=== PATIENT | female | born 2000 | race Hispanic/Latino ===

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

== ENCOUNTER 2024-11-05 17:32 | Emergency (ER) | payer OTHER ==
--- OUTSIDE RECORDS SUMMARY | 2024-11-05 17:41 | XMS REPORT | Continuity of Care Document ---
Author Name Unknown Address [address] [facility] [place] [address] [facility] [place] Address [address] [facility] [place] [address] Care Team Prov[address] Care Ct Manager Name Role Phone PCP, PATIENT DOES NOT HAVE A Primary Care Physic zelalem Unavailable CHONG HILLS Attending Clinician Unavailable KASEY FELDER Attending Clinician UnavailKasey Villasenor CNM Attending Clinician [phone] Doctor Unassigned, [place] Attending Clinician U ABIOLA Gonsales Attending Clinician Unavail able Abiola Cobos Attending Clinician + MAYELA CHAU Attending Clinician Unavailable MAYELA CHAU Attending Clinician Unavailable Mayela Chau MD Attending Clinician [phone] Ultrasound, [facility] Attending Clinician Unavailadriano rangel Doctor Unassigned, [place] Attending Clinician U SOHAM Rivas Attending Clinician Soham Gomes MD Attending Clinician [phone] Angela Boyd MD Attending Clinici an Yefri Paml Attending Clinician [phone] Kasey Felder CNM Attending Clinician [phone] NISREEN MONZON Attending Clinician Unavailable NISREEN MONZON Attending Clinician Unavailable 4, [facility] Attending Clinician Unavailadriano Monzon MD, Nisreen Attending Clinician [phone] Jaclyn [facility], Abiola Ventura Attending Clinician + Good Mendoza MD Attending Clinician + Marcus Stokes MD Attending Clinician [phone] GOOD MENDOZA Attending Clinician Unav ailable ELIZABETH YOUNG Attending Clinician Unavailab Hernandez MOLD ENGRAVER, Elizabeth Cm Attending Clinician + [phone] MARIA G LEIGH Attending Clinician Unavailtodd Leigh MOLD ENGRAVER, Maria G Beal Attending Clinician [phone] Lab, [facility] Attending Clinician Unavailable Ramírez CONKLIN, Mayela Squires Attending Clinician [phone], [facility] Attending Clinician Unavailadriano Mckeon MOLD ENGRAVER, Cheli Attending Clinician [phone] SOHAM BRIGGS Admitting Clinician Unavailadriano Briggs MD, Soham Solis Admitting Clinician + [phone] Good Mendoza MD Admitting Clinician + GOOD MENDOZA Admitting Clinician Unav ailable Payers Payer Name Policy Type Policy Number Effective Date Expirati on Date Source [place] [employer] [id number] 2024 00:00:00 [facility] [id number] 2023 00:00:00 2024 00:00:00 Problems Condition Name Condition Details Condition Category Status Onset Date Resolution Date Last Treatment Date Treating Clinician Comments Source Refuses tetanus, diphtheria , and acellular pertussis (Tdap) vaccinatio n Refuses tetanus, diphtheria , and acellular pertussis (Tdap) vaccinatio n Disease Active 3-06 00:00: 00 [facility] Supervisio n of high-risk Supervisio n of high-risk Disease Active 2023-08 0-15 00:00: 00 [facility] Multiparit y Multiparit y Disease Active 2023-08 0-15 00:00: 00 [facility] Short interval between pregnancie s affecting , antepartum Short interval between pregnancie s affecting , antepartum Disease Active 2023-08 0-15 00:00: 00 [facility] Declines flu vaccine Declines flu vaccine Disease Active 2022-08 1-20 00:00: 00 [facility] Maternal varicella, non-immune Maternal varicella, non-immune Disease Active -29 00:00: 00 [facility] Overweight (BMI 25.0-29.9) Overweight (BMI 25.0-29.9) Disease Active 5-29 00:00: 00 [facility] (spontaneo us vaginal delivery) (spontaneo us vaginal delivery) Disease Active 5-21 00:00: 00 [facility] Anemia of mother in , antepartum Anemia of mother in , antepartum Disease Active 3-16 00:00: 00 [facility] Rubella non-immune status, antepartum Rubella non-immune status, antepartum Disease Active 2020-08 00:00: 00 [facility] Pain of round ligament affecting , antepartum Pain of round ligament affecting , antepartum Disease Active 2020-08 00:00: 00 [facility] BMI 29.0-29.9, adult BMI 29.0-29.9, adult Disease Active 2020-08 00:00: 00 [facility] Nausea and vomiting during Nausea and vomiting during Disease Active 2020-08 00:00: 00 [facility] Susceptibl e to varicella (non-immun e), currently Susceptibl e to varicella (non-immun e), currently Disease Resolve d 2023-08 00:00: 00 2024-10-16 00:00:00 2024-10-16 13:58:36 [facility] Over weight Over weight Disease Resolve d 2023-08 0-15 00:00: 00 2024-10-16 00:00:00 2024-10-16 13:58:42 [facility] Anemia, Anemia, Disease Resolve d 2022-08 2-09 00:00: 00 2024-05-28 00:00:00 2024-05-28 14:11:07 [facility] 39 weeks gestation of 39 weeks gestation of Disease Resolve d 2022-08 2-07 00:00: 00 2024-05-28 00:00:00 2024-05-28 14:11:06 [facility] Insufficie nt care in third trimester Insufficie nt care in third trimester Disease Resolve d 2022-08 1-20 00:00: 00 2024-05-28 00:00:00 2024-05-28 14:11:11 [facility] Obesity affecting in third trimester Obesity affecting in third trimester Disease Resolve d 2022-0 5-29 00:00: 00 2024-05-28 00:00:00 2024-05-28 14:11:15 [facility] Obstetrica l laceration Obstetrica l laceration Disease Resolve d 2021-0 5-22 00:00: 00 2024-05-28 00:00:00 2024-05-28 15:05:21 [facility] Single live Single live Disease Resolve d 2021-0 5-21 00:00: 00 2024-05-28 00:00:00 2024-05-28 14:11:17 [facility] (normal spontaneou s vaginal delivery) (normal spontaneou s vaginal delivery) Disease Resolve d 2021-0 5-21 00:00: 00 2024-05-28 00:00:00 2024-05-28 14:11:13 [facility] Anemia of mother in , antepartum Anemia of mother in , antepartum Disease Active 2021-0 3-16 00:00: 00 2024-05-28 00:00:00 2024-05-28 14:11:07 [facility] related nausea, antepartum related nausea, antepartum Disease Resolve d 2020- 1-09 00:00: 00 2023-07-03 00:00:00 2023-07-03 14:58:46 [facility] Chorioamni onitis Chorioamni onitis Disease Resolve d 2021-0 5-22 00:00: 00 2023-01-06 00:00:00 2023-01-06 10:20:59 [facility] 37 weeks gestation of 37 weeks gestation of Disease Resolve d 2021-0 5-20 00:00: 00 2023-01-06 00:00:00 2023-01-06 10:20:52 [facility] Uterine contractio ns Uterine contractio ns Disease Resolve d 0 5-19 00:00: 00 2023-01-06 00:00:00 2023-01-06 10:20:51 [facility] Obesity in Obesity in Disease Resolve d 2021-0 4-29 00:00: 00 2023-01-06 00:00:00 2023-01-06 10:21:05 [facility] Obesity (BMI 30-39.9) Obesity (BMI 30-39.9) Disease Resolve d 2021-0 4-29 00:00: 00 2023-01-06 00:00:00 2023-01-06 10:21:04 [facility] High risk teen in third trimester High risk teen in third trimester Disease Resolve d 2021-0 3-16 00:00: 00 2023-01-06 00:00:00 2023-01-06 10:21:00 [facility] Primigravi da in third trimester Primigravi da in third trimester Disease Resolve d 2021-0 2-18 00:00: 00 2023-01-06 00:00:00 2023-01-06 10:21:06 [facility] Chlamydia infection affecting in first trimester Chlamydia infection affecting in first trimester Disease Resolve d 2020-08 1-11 00:00: 00 2023-01-06 00:00:00 2023-01-06 10:20:58 Overview: Formattin g of this note might be different from the original. ANAND neg [facility] Susceptibl e to varicella (non-immun e), currently Susceptibl e to varicella (non-immun e), currently Disease Resolve d 2020-08- 00:00: 00 2023-01-06 00:00:00 2023-01-06 10:21:13 [facility] BMI 29.0-29.9, adult BMI 29.0-29.9, adult Disease Resolve d 2020-08 00:00: 00 2023-01-06 00:00:00 2023-01-06 10:20:57 [facility] Nausea and vomiting during Nausea and vomiting during Disease Resolve d 2020-08 00:00: 00 2023-01-06 00:00:00 2023-01-06 10:21:17 [facility] Supervisio n of high-risk Supervisio n of high-risk Disease Resolve d 2020-08 00:00: 00 2023-01-06 00:00:00 2023-01-06 10:21:11 [facility] 36 weeks gestation of 36 weeks gestation of Disease Resolve d 5-19 00:00: 00 2022-01-02 00:00:00 2022-01-02 07:12:50 [facility] Allergies, Adverse Reactions, Alerts Allergy Name Allergy Type Status Severity Reaction(s) Onset Date Inactive Date Treating Clinician Comments Source NO KNOWN ALLERGIE S Drug Class Active [facility] Family History Family Member Diagnosis Comments Start Date Stop Date Sourc e Maternal grandfather Other - see comments [facility] Maternal grandmother Diabetes [facility] Maternal grandmother Heart [facility] Maternal grandmother Hypertension [facility] Maternal grandmother Lipids [facility] Paternal grandmother Hypertension [facility] Social History Social Habit Start Date Stop Date Quantity Comments Source ASSERTION 2024-03-21 00:00:00 [facility] intake 2024-10-16 00:00:00 2024-10-16 00:00:00 Current non-drinker of alcohol (finding) [facility] History of Social function 2024-05-28 00:00:00 2024-05-28 00:00:00 [facility] Alcohol intake 2023-07-20 00:00:00 2023-07-20 00:00:00 Current non-drinker of alcohol (finding) [facility] Exposure to SARS-CoV-2 (event) 2022-12-27 00:00:00 2023-01-06 09:39:00 Not sure [facility] Tobacco use and exposure 2023-01-06 00:00:00 2023-01-06 00:00:00 Smokeless tobacco non-user [facility] Sex assigned at 2000 00:00:00 2000 00:00:00 [facility] Smoking Status Start Date Stop Date Source Never smoked tobacco [facility] Medications Ordered Medication Name Filled Medication Name Start Date Stop Date Current Medication? Ordering Clinician Indication Dosage Frequency Signature (SIG) Comments Components Source Iron Fum & P-FA-Vit B & C No.9 (INTEGRA PLUS) 125 mg iron- 1 mg Cap 3-06 00:00: 00 Yes [id number] 1{capsu le} Take 1 capsule by mouth in the morning. [facility] Nitrofurant oin&Nit. Macrocryst (MACROBID) 100 mg capsule 2-04 00:00: 00 09-28 05:59 :00 No [id number] 100mg Take 1 capsule by mouth in the morning and 1 capsule in the evening. Do all this for 10 days. [facility] Nitrofurant oin&Nit. Macrocryst (MACROBID) 100 mg capsule 1-09 00:00: 00 08-22 00:00 :00 No [id number] 100mg Take 1 capsule by mouth in the morning and 1 capsule in the evening. Do all this for 10 days. [facility] metroNIDAZO LE 500 mg tablet -08 00:00: 00 10-16 00:00 :00 No [id number] 500mg Take 1 tablet by mouth in the morning and 1 tablet in the evening. [facility] fluconazole (DIFLUCAN) 150 mg tablet 08-21 00:00: 00 08-22 05:59 :00 Yes [id number] 150mg Take 1 tablet by mouth once now for 1 dose. [facility] Nitrofurant oin&Nit. Macrocryst (MACROBID) 100 mg capsule 08-19 00:00: 00 08-30 05:59 :00 Yes [id number] 100mg Take 1 capsule by mouth in the morning and 1 capsule in the evening. Do all this for 10 days. [facility] metroNIDAZO LE 500 mg tablet 2023-08 00:00: 00 10-16 00:00 :00 No [id number] 500mg Take 1 tablet by mouth in the morning and 1 tablet in the evening. [facility] fluconazole (DIFLUCAN) 150 mg tablet 2023-08 00:00: 00 06-27 05:59 :00 No [id number] 150mg Take 1 tablet by mouth once now for 1 dose. [facility] promethazin e HCl (PROMETHAZI NE ORAL) 2023-08 13:51: 22 10-16 00:00 :00 No [id number] Take by mouth. [facility] proMETHazin e 25 mg tablet 2023-08 00:00: 00 Yes [id number] 25mg Take 1 tablet by mouth every 6 (six) hours as needed for Nausea and Vomiting (N/V). [facility] vitamin w/FA tablet 2022-08 00:00: 00 05-28 00:00 :00 No [id number] 1{tbl} Take 1 tablet by mouth in the morning. [facility] docusate 100 mg capsule 2022-08 00:00: 00 05-28 00:00 :00 No [id number] 200mg Take 2 capsules by mouth once daily as needed for Constipati on. [facility] ferrous sulfate 325 mg (65 mg iron) tablet 2022-08 00:00: 00 05-28 00:00 :00 No [id number] 325mg Take 1 tablet by mouth in the morning and 1 tablet in the evening. [facility] ibuprofen 600 mg tablet 2022-08 00:00: 00 05-28 00:00 :00 No [id number] 600mg Take 1 tablet by mouth every 6 (six) hours as needed (Pain). Take with food or milk. [facility] rho(D) immune globulin (RHOGAM) syringe 300 mcg 2022-08 14:31: 21 Yes 300ug 300 mcg, Intramuscu lar, ONCE, For 1 dose, Conditiona l, Routine [facility] human papillomav vac,9-ester(P F) (GARDASIL-9 ) syringe 0.5 mL 2022-08 14:31: 18 Yes .5mL 0.5 mL, Intramuscu lar, ONCE-PRIOR TO DISCHARGE, 1 dose, Starting on Mon07/21/23 at 0831, Until Discontinu ed, Routine, Give vaccine prior to discharge [facility] HYDROcodone -acetaminop hen (NORCO 5) 5-325 mg tablet 1 tablet 2022-08 14:31: 18 Yes 1{tbl} 1 tablet, Oral, Q6HPRN, Starting on Mon07/21/23 at 0831, Until Discontinu ed, Routine, Pain (scale 7-10) [facility] ibuprofen (IBU) tablet 600 mg 2022-08 14:31: 17 Yes 600mg 600 mg, Oral, Q6HPRN, Starting on Mon07/21/23 at 0831, Until Discontinu ed, Routine, Pain (scale 4-6) [facility] acetaminoph en (TYLENOL) tablet 650 mg 2022-08 14:31: 17 Yes 650mg 650 mg, Oral, Q6HPRN, Starting on Mon07/21/23 at 0831, Until Discontinu ed, Routine, Pain (scale 1-3) [facility] diphenhydrA MINE (BENADRYL) tablet 25 mg 2022-08 14:31: 17 Yes 25mg 25 mg, Oral, Q6HPRN, Starting on Mon07/21/23 at 0831, Until Discontinu ed, Routine, Sleep, Itching [facility] ondansetron (ZOFRAN (PF)) injection 4 mg 2022-08 14:31: 17 Yes 4mg 4 mg, Slow IV Push, Q8HPRN, Starting on Mon07/21/23 at 0831, Until Discontinu ed, Routine, Nausea and Vomiting (N/V) [facility] simethicone (GAS RELIEF (SIMETHICON E)) chewable tablet 160 mg 2022-08 14:31: 17 Yes 160mg 160 mg, Oral, PC+HSPRN, Starting on Mon07/21/23 at 0831, Until Discontinu ed, Routine, Gas [facility] docusate (COLACE) capsule 200 mg 2022-08 14:31: 17 Yes 200mg 200 mg, Oral, QDAILYPRN, Starting on Mon07/21/23 at 0831, Until Discontinu ed, Routine, Constipati on [facility] magnesium hydroxide (MILK OF MAGNESIA) 400 mg/5 mL suspension 30 mL 2022-08 14:31: 17 Yes 30mL 30 mL, Oral, QDAILYPRN, Starting on Mon07/21/23 at 0831, Until Discontinu ed, Routine, Constipati on [facility] benzocaine- menthol (DERMOPLAST ) 20-0.5 % topical spray 2022-08 14:31: 17 Yes Topical, PRN, Starting on Mon07/21/23 at 0831, Until Discontinu ed, Routine, Perineum discomfort [facility] oxytocin (PITOCIN) 30 units in NS 500 mL IV infusion 2022-08 12:37: 33 07-21 14:31 :20 No 300mL/h 300 mL/hr, IV Infusion, SEE-INSTRU CTIONS, Starting on Mon07/21/[address] at 300 mL/hr for 1 hr then 150 mL/hr for 1 hr. For post delivery uterotonic .
[facility] ropivacaine 0.2 % (NAROPIN (PF)) epidural infusion 2022-08 08:46: 00 07-21 13:22 :06 No Epidural, CONTINUOUS PRN, Starting on Mon07/21/23 at 0246, Until Mon07/21/23 at 0722, Routine, Intra-op [facility] lidocaine-e pinephrine (XYLOCAINE W/EPINEPHRI NE) 1.5 %-1:200,000 injection 2022-08 08:40: 00 07-21 13:22 :06 No Intraderma l, ONCE INTRA PROCEDURE, Starting on Mon07/21/23 at 0240, Until Mon07/21/23 at 0722, Routine, Intra-op [facility] morpHINE (4 mg/mL) injection 4 mg 2022-08 08:00: 00 07-21 07:16 :00 No 4mg 4 mg, Slow IV Push, ONCE, 1 dose, On Mon07/21/23 at 0200, Routine [facility] proMETHazin e (PHENERGAN) 25 mg in NS 50 mL IV piggyback (CNR) 2022-08 03:30: 00 07-21 04:19 :00 No 25mg 25 mg, IV Piggyback, at 200 mL/hr Administer over 15 Minutes, ONCE NOW, 1 dose, On Raiza 07/20/23 at 2130, Routine [facility] morpHINE (4 mg/mL) injection 4 mg 2022-08 03:15: 00 07-21 02:35 :00 No 4mg 4 mg, Slow IV Push, ONCE, 1 dose, On Mon07/20/23 at 2115, Routine [facility] sodium citrate-cit gera acid (BICITRA) 500-334 mg/5 mL solution 30 mL 2022-08 02:11: 13 07-21 08:15 :00 No 30mL 30 mL, Oral, PRE-PROCED URE ONCE, 1 dose, Starting on Raiza 07/20/23 at 2010, Until Discontinu ed, Routine, Surgery/Pr ocedure [facility] lactated ringers IV infusion 500 mL 2022-08 02:11: 13 07-21 14:31 :20 No 500mL at 999 mL/hr, 500 mL, IV Infusion, PRN - SEE INSTRUCTIO NS, Starting on Mon07/20/23 at 2010, Until Mon07/21/23 at 0831, Routine [facility] [id number]-[id number] IV infusion 1,000 mL 2022-08 02:11: 13 07-21 14:31 :20 No 1000mL at 1-125 mL/hr, IV Infusion, TITRATE, Starting on Mon07/20/23 at 2010, Until Mon07/21/23 at 0831, Routine [facility] Iron Fum & P-FA-Vit B & C No.9 (INTEGRA PLUS) 125 mg iron- 1 mg Cap 2022-08 00:00: 00 07-22 00:00 :00 No [id number] 1{capsu le} Take 1 capsule by mouth in the morning. [facility] varicella virus vaccine live (VARIVAX (PF)) injection 0.5 mL 01-02 13:43: 13 Yes .5mL 0.5 mL, Subcutaneo us, ONCE-PRIOR TO DISCHARGE, 1 dose, Starting on 01/02/22 at 0843, Until Discontinu ed, Routine, Give vaccine prior to discharge [facility] ibuprofen 600 mg tablet 01-02 00:00: 00 01-09 00:00 :00 No [id number] 600mg Take 1 tablet by mouth every 6 (six) hours as needed (Pain). Take with food or milk. [facility] rho(D) immune globulin (RHOGAM) syringe 300 mcg 01-01 12:29: 42 Yes 300ug 300 mcg, Intramuscu lar, ONCE, For 1 dose, Conditiona l, Routine [facility] ibuprofen (IBU) tablet 600 mg 01-01 12:29: 41 Yes 600mg 600 mg, Oral, Q6HPRN, Starting on 01/01/22 at 0729, Until Discontinu ed, Routine, Pain (scale 4-6) [facility] acetaminoph en (TYLENOL) tablet 650 mg 01-01 12:29: 41 Yes 650mg 650 mg, Oral, Q6HPRN, Starting on 01/01/22 at 0729, Until Discontinu ed, Routine, Pain (scale 1-3) [facility] diphenhydrA MINE (BENADRYL) tablet 25 mg 01-01 12:29: 41 Yes 25mg 25 mg, Oral, Q6HPRN, Starting on 01/01/22 at 0729, Until Discontinu ed, Routine, Sleep, Itching [facility] ondansetron (ZOFRAN (PF)) injection 4 mg 01-01 12:29: 41 Yes 4mg 4 mg, Slow IV Push, Q8HPRN, Starting on 01/01/22 at 0729, Until Discontinu ed, Routine, Nausea and Vomiting (N/V) [facility] simethicone (GAS RELIEF (SIMETHICON E)) chewable tablet 160 mg 01-01 12:29: 41 Yes 160mg 160 mg, Oral, PC+HSPRN, Starting on 01/01/22 at 0729, Until Discontinu ed, Routine, Gas [facility] docusate (COLACE) capsule 200 mg 01-01 12:29: 41 Yes 200mg 200 mg, Oral, QDAILYPRN, Starting on 01/01/22 at 0729, Until Discontinu ed, Routine, Constipati on [facility] magnesium hydroxide (MILK OF MAGNESIA) 400 mg/5 mL suspension 30 mL 01-01 12:29: 41 Yes 30mL 30 mL, Oral, QDAILYPRN, Starting on 01/01/22 at 0729, Until Discontinu ed, Routine, Constipati on [facility] benzocaine- menthol (DERMOPLAST ) 20-0.5 % topical spray 01-01 12:29: 41 Yes Topical, PRN, Starting on 01/01/22 at 0729, Until Discontinu ed, Routine, Perineum discomfort [facility] acetaminoph en (TYLENOL) tablet 650 mg 01-01 06:57: 00 01-01 07:11 :00 No 650mg 650 mg, Oral, ONCE, 1 dose, On 01/01/22 at 0200, Routine [facility] oxytocin (PITOCIN) 30 units in NS 500 mL IV infusion 01-01 06:52: 29 01-01 12:29 :43 No 300mL/h 300 mL/hr, IV Infusion, SEE-INSTRU CTIONS, Starting on 01/01/[address] at 300 mL/hr for 1 hr then 150 mL/hr for 1 hr. & nbsp; For post delivery uterotonic
[facility] acetaminoph en (TYLENOL) tablet 650 mg 01-01 01:45: 00 01-01 00:44 :00 No 650mg 650 mg, Oral, ONCE, 1 dose, On Mon12/31/21 at 2045, Routine [facility] bupivacaine (preserv free) (SENSORCAIN E MPF) 0.25 % (2.5 mg/mL) injection 01-01 01:02: 00 01-01 08:33 :09 No Caudal Block, ONCE INTRA PROCEDURE, Starting on Mon12/31/21 at 2002, Until Mon01/01/22 at 0333, Routine, Intra-op [facility] lactated ringers IV infusion 500 mL 12-31 19:45: 00 12-31 18:59 :00 No 500mL at 999 mL/hr, 500 mL, IV Infusion, ONCE, 1 dose, On Mon12/31/21 at 1445, Routine [facility] oxytocin (PITOCIN) 30 units in NS 500 mL IV infusion 12-31 19:43: 34 01-01 12:29 :43 No 1mU/min at 1-40 mL/hr, IV Infusion, TITRATE, Starting on Mon12/31/21 at 1443, Until Mon01/01/22 at 0729, SUSHILA [facility] ropivacaine 0.2 % (NAROPIN (PF)) epidural infusion 12-31 19:18: 00 01-01 08:33 :09 No Epidural, CONTINUOUS PRN, Starting on Mon12/31/21 at 1418, Until 01/01/22 at 0333, Routine, Intra-op [facility] lidocaine-e pinephrine (XYLOCAINE W/EPINEPHRI NE) 2 %-1:200,000 injection 12-31 19:13: 00 01-01 08:33 :09 No Intravenou s, ONCE INTRA PROCEDURE, Starting on Mon12/31/21 at 1413, Until 01/01/22 at 0333, Routine, Intra-op [facility] lidocaine 1% (XYLOCAINE) 100 mg/10 mL (1 %) injection 12-31 19:01: 00 01-01 08:33 :09 No Slow IV Push, ONCE INTRA PROCEDURE, Starting on Mon12/31/21 at 1401, Until 01/01/22 at 0333, Routine, Intra-op [facility] sodium citrate-cit gera acid (BICITRA) 500-334 mg/5 mL solution 30 mL 12-31 18:41: 44 12-31 18:59 :00 No 30mL 30 mL, Oral, PRE-PROCED URE ONCE, 1 dose, Starting on Mon12/31/21 at 1341, Until Discontinu ed, Routine, Surgery/Pr ocedure [facility] hydrocortis one 1 % cream 12-31 16:57: 04 01-01 12:29 :43 No Topical (Apply To Affected Areas), BIDPRN, Starting on Mon12/31/21 at 1157, Until 01/01/22 at 0729, Routine, Dermatitis /Rash [facility] proMETHazin e (PHENERGAN) 25 mg in NS 50 mL IV piggyback (CNR) 12-31 15:30: 00 12-31 15:11 :00 No 25mg 25 mg, IV Piggyback, at 200 mL/hr Administer over 15 Minutes, ONCE, 1 dose, On Mon12/31/21 at 1030, Routine [facility] butorphanol (STADOL) injection 1 mg 12-31 15:30: 00 12-31 14:45 :00 No 1mg 1 mg, IV Push, ONCE, 1 dose, On Mon12/31/21 at 1030, Routine [facility] tobramycin (NEBCIN) 320 mg in NaCl 0.9% (NS) piggyback 12-31 14:00: 00 01-01 12:29 :43 No 5mg/kg 320 mg (rounded from 310.5 mg = 5 mg/kg ?62.1 kg Adjusted weight), IV Piggyback, Q24H ABX, First dose on Mon12/31/21 at 0900, Until Discontinu ed, Administer over 30 Minutes, 50 mL
Reas on for Anti-Infec tive: Documented Infection< br>Documen seda Infection Site: Pelvic
Duration of Therapy: Other (see Comments) [facility] ampicillin (POLYCILLIN -N) 2,000 mg in NaCl 0.9% (NS) 100 mL MINI-BAG 12-31 14:00: 00 01-01 12:29 :43 No 2g 2,000 mg (2 g), IV Piggyback, Q6H ABX, First dose on Mon12/31/21 at 0900, Until Discontinu ed, Administer over 30 Minutes, 100 mL
Reas on for Anti-Infec tive: Empiric Therapy for Suspected Infection< br>Empiric Therapy Site: Pelvic
Duration of therapy: 72 hours [facility] acetaminoph en (TYLENOL) tablet 650 mg 12-31 14:00: 00 12-31 13:26 :00 No 650mg 650 mg, Oral, ONCE, 1 dose, On Mon12/31/21 at 0900, Routine [facility] proMETHazin e (PHENERGAN) 25 mg in NS 50 mL IV piggyback (CNR) 12-31 08:15: 00 12-31 07:46 :00 No 25mg 25 mg, IV Piggyback, at 200 mL/hr Administer over 15 Minutes, ONCE, 1 dose, On Mon12/31/21 at 0315, Routine [facility] [facility] but[facility]STADOL[facility] 1 mg 12-31 08:15: 00 12-31 07:27 :00 No 1mg 1 mg, IV Push, ONCE, 1 dose, On Mon12/31/21 at 0315, Routine [facility] [id number] IV infusion 1,000 mL 12-31 05:15: 00 01-01 12:29 :43 No 1000mL at 125 mL/hr, IV Infusion, CONTINUOUS , Starting on Mon12/31/21 at 0015, Until 01/01/22 at 0729, Routine [facility] lactated ringers IV infusion 500 mL 12-31 05:01: 18 01-01 12:29 :43 No 500mL at 999 mL/hr, 500 mL, IV Infusion, PRN - SEE INSTRUCTIO NS, Starting on Mon12/31/21 at 0001, Until 01/01/22 at 0729, Routine [facility] ferrous sulfate 325 mg (65 mg iron) tablet 10-18 00:00: 00 01-09 00:00 :00 No [id number] 325mg Take 1 tablet by mouth 2 (two) times daily. [facility] ascorbic acid, vitamin C, 500 mg tablet 10-18 00:00: 00 01-09 00:00 :00 No [id number] 500mg Take 1 tablet by mouth 3 (three) times daily. [facility] SELECT-OB + DHA 29 mg iron-1 mg -250 mg combo pack 2020-08 00:00: 00 01-09 00:00 :00 No [facility] Immunizations Ordered Immunization Name Filled Immunization Name Date Status Comments Source HEPATITIS A 2015-04-07 00:00:00 Completed [facility] HPV 2015-04-07 00:00:00 Completed [facility] HEPATITIS A 2015-04-07 00:00:00 Completed [facility] HPV 2015-04-07 00:00:00 Completed [facility] HEPATITIS A 2015-04-07 00:00:00 Completed [facility] HPV 2015-04-07 00:00:00 Completed [facility] HEPATITIS A 2015-04-07 00:00:00 Completed [facility] HPV 2015-04-07 00:00:00 Completed [facility] HEPATITIS A 2015-04-07 00:00:00 Completed [facility] HPV 2015-04-07 00:00:00 Completed [facility] HEPATITIS A 2015-04-07 00:00:00 Completed HPV 2015-04-07 00:00:00 Completed Influenza Virus Vaccine 2014-05-15 00:00:00 Completed [facility] Influenza Virus Vaccine 2014-05-15 00:00:00 Completed [facility] Influenza Virus Vaccine 2014-05-15 00:00:00 Completed [facility] Influenza Virus Vaccine 2014-05-15 00:00:00 Completed [facility] Influenza Virus Vaccine 2014-05-15 00:00:00 Completed [facility] Influenza Virus Vaccine 2014-05-15 00:00:00 Completed TDAP (ADACEL) VACCINE 2013-06-06 00:00:00 Completed [facility] Influenza Virus Vaccine 2013-06-06 00:00:00 Completed [facility] Meningococcal Vaccine 2013-06-06 00:00:00 Completed [facility] TDAP (ADACEL) VACCINE 2013-06-06 00:00:00 Completed [facility] Influenza Virus Vaccine 2013-06-06 00:00:00 Completed [facility] Meningococcal Vaccine 2013-06-06 00:00:00 Completed [facility] TDAP (ADACEL) VACCINE 2013-06-06 00:00:00 Completed [facility] Influenza Virus Vaccine 2013-06-06 00:00:00 Completed [facility] Meningococcal Vaccine 2013-06-06 00:00:00 Completed [facility] TDAP (ADACEL) VACCINE 2013-06-06 00:00:00 Completed [facility] Influenza Virus Vaccine 2013-06-06 00:00:00 Completed [facility] Meningococcal Vaccine 2013-06-06 00:00:00 Completed [facility] TDAP (ADACEL) VACCINE 2013-06-06 00:00:00 Completed [facility] Influenza Virus Vaccine 2013-06-06 00:00:00 Completed [facility] Meningococcal Vaccine 2013-06-06 00:00:00 Completed [facility] TDAP (ADACEL) VACCINE 2013-06-06 00:00:00 Completed Influenza Virus Vaccine 2013-06-06 00:00:00 Completed Meningococcal Vaccine 2013-06-06 00:00:00 Completed Influenza Virus Vaccine 2010-05-07 00:00:00 Completed [facility] Influenza Virus Vaccine 2010-05-07 00:00:00 Completed [facility] Influenza Virus Vaccine 2010-05-07 00:00:00 Completed [facility] Influenza Virus Vaccine 2010-05-07 00:00:00 Completed [facility] Influenza Virus Vaccine 2010-05-07 00:00:00 Completed [facility] Influenza Virus Vaccine 2010-05-07 00:00:00 Completed Varicella (varivax)(chicken pox) 2009-12-14 00:00:00 Completed [facility] Varicella (varivax)(chicken pox) 2009-12-14 00:00:00 Completed [facility] Varicella (varivax)(chicken pox) 2009-12-14 00:00:00 Completed [facility] Varicella (varivax)(chicken pox) 2009-12-14 00:00:00 Completed [facility] Varicella (varivax)(chicken pox) 2009-12-14 00:00:00 Completed [facility] Varicella (varivax)(chicken pox) 2009-12-14 00:00:00 Completed DTAP 2006-10-12 00:00:00 Completed [facility] MMR 2006-10-12 00:00:00 Completed [facility] Polio (IPV/OPV) 2006-10-12 00:00:00 Completed [facility] DTAP 2006-10-12 00:00:00 Completed [facility] MMR 2006-10-12 00:00:00 Completed [facility] Polio (IPV/OPV) 2006-10-12 00:00:00 Completed [facility] DTAP 2006-10-12 00:00:00 Completed [facility] MMR 2006-10-12 00:00:00 Completed [facility] Polio (IPV/OPV) 2006-10-12 00:00:00 Completed [facility] DTAP 2006-10-12 00:00:00 Completed [facility] MMR 2006-10-12 00:00:00 Completed [facility] Polio (IPV/OPV) 2006-10-12 00:00:00 Completed [facility] DTAP 2006-10-12 00:00:00 Completed [facility] MMR 2006-10-12 00:00:00 Completed [facility] Polio (IPV/OPV) 2006-10-12 00:00:00 Completed [facility] DTAP 2006-10-12 00:00:00 Completed MMR 2006-10-12 00:00:00 Completed Polio (IPV/OPV) 2006-10-12 00:00:00 Completed DTAP 2003-10-03 00:00:00 Completed [facility] HIB 4 Dose Schedule 2003-10-03 00:00:00 Completed [facility] Pneumococcal 13 Conjugate, PCV13 (Prevnar 13) 2003-10-03 00:00:00 Completed [facility] Polio (IPV/OPV) 2003-10-03 00:00:00 Completed [facility] DTAP 2003-10-03 00:00:00 Completed [facility] HIB 4 Dose Schedule 2003-10-03 00:00:00 Completed [facility] Pneumococcal 13 Conjugate, PCV13 (Prevnar 13) 2003-10-03 00:00:00 Completed [facility] Polio (IPV/OPV) 2003-10-03 00:00:00 Completed [facility] DTAP 2003-10-03 00:00:00 Completed [facility] HIB 4 Dose Schedule 2003-10-03 00:00:00 Completed [facility] Pneumococcal 13 Conjugate, PCV13 (Prevnar 13) 2003-10-03 00:00:00 Completed [facility] Polio (IPV/OPV) 2003-10-03 00:00:00 Completed [facility] DTAP 2003-10-03 00:00:00 Completed [facility] HIB 4 Dose Schedule 2003-10-03 00:00:00 Completed [facility] Pneumococcal 13 Conjugate, PCV13 (Prevnar 13) 2003-10-03 00:00:00 Completed [facility] Polio (IPV/OPV) 2003-10-03 00:00:00 Completed [facility] DTAP 2003-10-03 00:00:00 Completed [facility] HIB 4 Dose Schedule 2003-10-03 00:00:00 Completed [facility] Pneumococcal 13 Conjugate, PCV13 (Prevnar 13) 2003-10-03 00:00:00 Completed [facility] Polio (IPV/OPV) 2003-10-03 00:00:00 Completed [facility] DTAP 2003-10-03 00:00:00 Completed HIB 4 Dose Schedule 2003-10-03 00:00:00 Completed Pneumococcal 13 Conjugate, PCV13 (Prevnar 13) 2003-10-03 00:00:00 Completed Polio (IPV/OPV) 2003-10-03 00:00:00 Completed MMR 2003 00:00:00 Completed [facility] Varicella (varivax)(chicken pox) 2003 00:00:00 Completed [facility] MMR 2003 00:00:00 Completed [facility] Varicella (varivax)(chicken pox) 2003 00:00:00 Completed [facility] MMR 2003 00:00:00 Completed [facility] Varicella (varivax)(chicken pox) 2003 00:00:00 Completed [facility] MMR 2003 00:00:00 Completed [facility] Varicella (varivax)(chicken pox) 2003 00:00:00 Completed [facility] MMR 2003 00:00:00 Completed [facility] Varicella (varivax)(chicken pox) 2003 00:00:00 Completed [facility] MMR 2003 00:00:00 Completed Varicella (varivax)(chicken pox) 2003 00:00:00 Completed Pneumococcal 13 Conjugate, PCV13 (Prevnar 13) 2003-03-25 00:00:00 Completed [facility] Polio (IPV/OPV) 2003-03-25 00:00:00 Completed [facility] Pneumococcal 13 Conjugate, PCV13 (Prevnar 13) 2003-03-25 00:00:00 Completed [facility] Polio (IPV/OPV) 2003-03-25 00:00:00 Completed [facility] Pneumococcal 13 Conjugate, PCV13 (Prevnar 13) 2003-03-25 00:00:00 Completed [facility] Polio (IPV/OPV) 2003-03-25 00:00:00 Completed [facility] Pneumococcal 13 Conjugate, PCV13 (Prevnar 13) 2003-03-25 00:00:00 Completed [facility] Polio (IPV/OPV) 2003-03-25 00:00:00 Completed [facility] Pneumococcal 13 Conjugate, PCV13 (Prevnar 13) 2003-03-25 00:00:00 Completed [facility] Polio (IPV/OPV) 2003-03-25 00:00:00 Completed [facility] Pneumococcal 13 Conjugate, PCV13 (Prevnar 13) 2003-03-25 00:00:00 Completed Polio (IPV/OPV) 2003-03-25 00:00:00 Completed Hep B, Adol or Pedi Dosage 2002 00:00:00 Completed [facility] Hep B, Adol or Pedi Dosage 2002 00:00:00 Completed [facility] Hep B, Adol or Pedi Dosage 2002 00:00:00 Completed [facility] Hep B, Adol or Pedi Dosage 2002 00:00:00 Completed [facility] Hep B, Adol or Pedi Dosage 2002 00:00:00 Completed [facility] Hep B, Adol or Pedi Dosage 2002 00:00:00 Completed DTAP 2002 00:00:00 Completed [facility] HIB 4 Dose Schedule 2002 00:00:00 Completed [facility] Pneumococcal 13 Conjugate, PCV13 (Prevnar 13) 2002 00:00:00 Completed [facility] DTAP 2002 00:00:00 Completed [facility] HIB 4 Dose Schedule 2002 00:00:00 Completed [facility] Pneumococcal 13 Conjugate, PCV13 (Prevnar 13) 2002 00:00:00 Completed [facility] DTAP 2002 00:00:00 Completed [facility] HIB 4 Dose Schedule 2002 00:00:00 Completed [facility] Pneumococcal 13 Conjugate, PCV13 (Prevnar 13) 2002 00:00:00 Completed [facility] DTAP 2002 00:00:00 Completed [facility] HIB 4 Dose Schedule 2002 00:00:00 Completed [facility] Pneumococcal 13 Conjugate, PCV13 (Prevnar 13) 2002 00:00:00 Completed [facility] DTAP 2002 00:00:00 Completed [facility] HIB 4 Dose Schedule 2002 00:00:00 Completed [facility] Pneumococcal 13 Conjugate, PCV13 (Prevnar 13) 2002 00:00:00 Completed [facility] DTAP 2002 00:00:00 Completed HIB 4 Dose Schedule 2002 00:00:00 Completed Pneumococcal 13 Conjugate, PCV13 (Prevnar 13) 2002 00:00:00 Completed HIB 4 Dose Schedule 2002 00:00:00 Completed [facility] Pneumococcal 13 Conjugate, PCV13 (Prevnar 13) 2002 00:00:00 Completed [facility] Polio (IPV/OPV) 2002 00:00:00 Completed [facility] DTAP 2002 00:00:00 Completed [facility] HIB 4 Dose Schedule 2002 00:00:00 Completed [facility] Pneumococcal 13 Conjugate, PCV13 (Prevnar 13) 2002 00:00:00 Completed [facility] Polio (IPV/OPV) 2002 00:00:00 Completed [facility] DTAP 2002 00:00:00 Completed [facility] HIB 4 Dose Schedule 2002 00:00:00 Completed [facility] Pneumococcal 13 Conjugate, PCV13 (Prevnar 13) 2002 00:00:00 Completed [facility] Polio (IPV/OPV) 2002 00:00:00 Completed [facility] DTAP 2002 00:00:00 Completed [facility] HIB 4 Dose Schedule 2002 00:00:00 Completed [facility] Pneumococcal 13 Conjugate, PCV13 (Prevnar 13) 2002 00:00:00 Completed [facility] Polio (IPV/OPV) 2002 00:00:00 Completed [facility] DTAP 2002 00:00:00 Completed HIB 4 Dose Schedule 2002 00:00:00 Completed Pneumococcal 13 Conjugate, PCV13 (Prevnar 13) 2002 00:00:00 Completed Polio (IPV/OPV) 2002 00:00:00 Completed DTAP 2002 00:00:00 Completed [facility] HIB 4 Dose Schedule 2002 00:00:00 Completed [facility] Pneumococcal 13 Conjugate, PCV13 (Prevnar 13) 2002 00:00:00 Completed [facility] Polio (IPV/OPV) 2002 00:00:00 Completed [facility] DTAP 2002 00:00:00 Completed [facility] DTAP 2002 00:00:00 Completed [facility] HIB 4 Dose Schedule 2002 00:00:00 Completed [facility] Polio (IPV/OPV) 2002 00:00:00 Completed [facility] DTAP 2002 00:00:00 Completed [facility] HIB 4 Dose Schedule 2002 00:00:00 Completed [facility] Polio (IPV/OPV) 2002 00:00:00 Completed [facility] DTAP 2002 00:00:00 Completed [facility] HIB 4 Dose Schedule 2002 00:00:00 Completed [facility] Polio (IPV/OPV) 2002 00:00:00 Completed [facility] DTAP 2002 00:00:00 Completed [facility] HIB 4 Dose Schedule 2002 00:00:00 Completed [facility] Polio (IPV/OPV) 2002 00:00:00 Completed [facility] DTAP 2002 00:00:00 Completed [facility] HIB 4 Dose Schedule 2002 00:00:00 Completed [facility] Polio (IPV/OPV) 2002 00:00:00 Completed [facility] DTAP 2002 00:00:00 Completed HIB 4 Dose Schedule 2002 00:00:00 Completed Polio (IPV/OPV) 2002 00:00:00 Completed Hep B, Adol or Pedi Dosage 2002 00:00:00 Completed [facility] Hep B, Adol or Pedi Dosage 2002 00:00:00 Completed [facility] Hep B, Adol or Pedi Dosage 2002 00:00:00 Completed [facility] Hep B, Adol or Pedi Dosage 2002 00:00:00 Completed [facility] Hep B, Adol or Pedi Dosage 2002 00:00:00 Completed [facility] Hep B, Adol or Pedi Dosage 2002 00:00:00 Completed Hep B, Adol or Pedi Dosage 2002 00:00:00 Completed [facility] Hep B, Adol or Pedi Dosage 2002 00:00:00 Completed [facility] Hep B, Adol or Pedi Dosage 2002 00:00:00 Completed [facility] Hep B, Adol or Pedi Dosage 2002 00:00:00 Completed [facility] Hep B, Adol or Pedi Dosage 2002 00:00:00 Completed [facility] Hep B, Adol or Pedi Dosage 2002 00:00:00 Completed TDAP (ADACEL) VACCINE Unknown Completed [facility] DTAP Unknown Completed [facility] HIB 4 Dose Schedule Unknown Completed [facility] HEPATITIS A Unknown Completed [facility] Hep B, Adol or Pedi Dosage Unknown Completed [facility] HPV Unknown Completed [facility] Influenza Virus Vaccine Unknown Completed [facility] Meningococcal Vaccine Unknown Completed [facility] MMR Unknown Completed [facility] Pneumococcal 13 Conjugate, PCV13 (Prevnar 13) Unknown Completed [facility] Polio (IPV/OPV) [facility]ch[facility] pox[facility] Completed [facility] TDAP (ADACEL) VACCINE Unknown Completed [facility] DTAP Unknown Completed [facility] HIB 4 Dose Schedule Unknown Completed [facility] HEPATITIS A Unknown Completed [facility] Hep B, Adol or Pedi Dosage Unknown Completed [facility] HPV Unknown Completed [facility] Influenza Virus Vaccine Unknown Completed [facility] Meningococcal Vaccine Unknown Completed [facility] MMR Unknown Completed [facility] Pneumococcal 13 Conjugate, PCV13 (Prevnar 13) Unknown Completed [facility] Polio (IPV/OPV) Unknown [facility] Varicella (varivax)(chicken pox) Unknown Completed [facility] TDAP (ADACEL) VACCINE Unknown Completed [facility] DTAP Unknown Completed [facility] HIB 4 Dose Schedule Unknown Completed [facility] HEPATITIS A Unknown Completed [facility] Hep B, Adol or Pedi Dosage Unknown Completed [facility] HPV Unknown Completed [facility] Influenza Virus Vaccine Unknown Completed [facility] Meningococcal Vaccine Unknown Completed [facility] MMR Unknown Completed [facility] Pneumococcal 13 Conjugate, PCV13 (Prevnar 13) Unknown Completed [facility] Polio (IPV/OPV) Unknown Completed [facility] Varicella (varivax)(chicken pox) Unknown Completed [facility] TDAP (ADACEL) VACCINE Unknown Completed [facility] DTAP Unknown Completed [facility] HIB 4 Dose Schedule Unknown Completed [facility] HEPATITIS A Unknown Completed [facility] Hep B, Adol or Pedi Dosage Unknown Completed [facility] HPV Unknown Completed [facility] Influenza Virus Vaccine Unknown Completed [facility] Meningococcal Vaccine Unknown Completed [facility] MMR Unknown Completed [facility] Pneumococcal 13 Conjugate, PCV13 (Prevnar 13) Unknown Completed [facility] Polio (IPV/OPV) Unknown [facility]ella ([facility])(chicken pox) Unknown Completed [facility] TDAP (ADACEL) VACCINE Unknown Completed [facility] DTAP Unknown Completed [facility] HIB 4 Dose Schedule Unknown Completed [facility] HEPATITIS A Unknown Completed [facility] Hep B, Adol or Pedi Dosage Unknown Completed [facility] HPV Unknown Completed [facility] Influenza Virus Vaccine Unknown Completed [facility] Meningococcal Vaccine Unknown Completed [facility] MMR Unknown Completed [facility] Pneumococcal 13 Conjugate, PCV13 (Prevnar 13) Unknown Completed [facility] Polio (IPV/OPV) Unknown Completed [facility] Varicella (varivax)(chicken pox) Unknown Completed [facility] TDAP (ADACEL) VACCINE Unknown Completed [facility] DTAP Unknown Completed [facility] HIB 4 Dose Schedule Unknown Completed [facility]PATITIS A [facility], [facility] or Pedi Dosage Unknown Completed [facility] HPV Unknown Completed [facility] Influenza Virus Vaccine Unknown Completed [facility] Meningococcal Vaccine Unknown Completed [facility] MMR Unknown Completed [facility] Pneumococcal 13 Conjugate, PCV13 (Prevnar 13) Unknown Completed [facility] Polio (IPV/OPV) Unknown Completed [facility] Varicella (varivax)(chicken pox) Unknown Completed [facility] TDAP (ADACEL) VACCINE Unknown Completed [facility] DTAP Unknown Completed [facility] HIB 4 Dose Schedule Unknown Completed [facility] HEPATITIS A Unknown Completed [facility] Hep B, Adol or Pedi Dosage Unknown Completed [facility] HPV Unknown Completed [facility] Influenza Virus Vaccine Unknown Completed [facility] Meningococcal Vaccine Unknown Completed [facility] MMR Unknown Completed [facility] Pneumococcal 13 Conjugate, PCV13 (Prevnar 13) Unknown Completed [facility] Polio (IPV/OPV) Unknown Completed [facility] Varicella (varivax)(chicken pox) Unknown Completed [facility] TDAP (ADACEL) VACCINE Unknown Completed [facility] DTAP Unknown Completed [facility] HIB 4 Dose Schedule Unknown Completed [facility] HEPATITIS A Unknown Completed [facility] Hep B, Adol or Pedi Dosage Unknown Completed [facility] HPV Unknown Completed [facility] Influenza Virus Vaccine Unknown Completed [facility] Meningococcal Vaccine Unknown Completed [facility] MMR Unknown Completed [facility] Pneumococcal 13 Conjugate, PCV13 (Prevnar 13) Unknown Completed [facility] Polio (IPV/OPV) Unknown [facility]ella ([facility])(chicken pox) Unknown Completed [facility] TDAP (ADACEL) VACCINE Unknown Completed [facility] DTAP Unknown Completed [facility] HIB 4 Dose Schedule Unknown Completed [facility] HEPATITIS A Unknown Completed [facility] Hep B, Adol or Pedi Dosage Unknown Completed [facility] HPV Unknown Completed [facility] Influenza Virus Vaccine Unknown Completed [facility] Meningococcal Vaccine Unknown Completed [facility] MMR Unknown Completed [facility] Pneumococcal 13 Conjugate, PCV13 (Prevnar 13) Unknown Completed [facility] Polio (IPV/OPV) Unknown Completed [facility] Varicella (varivax)(chicken pox) Unknown Completed [facility] TDAP (ADACEL) VACCINE Unknown Completed [facility]IS A [facility] Meningococcal Vaccine Unknown Completed [facility] DTAP Unknown Completed [facility] HIB 4 Dose Schedule Unknown Completed [facility] Hep B, Adol or Pedi Dosage Unknown Completed [facility] Influenza Virus Vaccine Unknown Completed [facility] MMR Unknown Completed [facility] Pneumococcal 13 Conjugate, PCV13 (Prevnar 13) Unknown Completed [facility] Polio (IPV/OPV) Unknown Completed [facility] Varicella (varivax)(chicken pox) Unknown Completed [facility] TDAP (ADACEL) VACCINE Unknown Completed [facility] DTAP Unknown Completed [facility] HIB 4 Dose Schedule Unknown Completed [facility] HEPATITIS A Unknown Completed [facility] Hep B, Adol or Pedi Dosage Unknown Completed [facility] HPV Unknown Completed [facility] Influenza Virus Vaccine Unknown Completed [facility] Meningococcal Vaccine Unknown Completed [facility] MMR Unknown Completed [facility] Pneumococcal 13 Conjugate, PCV13 (Prevnar 13) Unknown Completed [facility] Polio (IPV/OPV) Unknown Completed [facility] Varicella (varivax)(chicken pox) Unknown Completed [facility] TDAP (ADACEL) VACCINE Unknown Completed [facility] DTAP Unknown Completed [facility] HIB 4 Dose Schedule Unknown Completed [facility] HEPATITIS A Unknown Completed [facility] Hep B, Adol or Pedi Dosage Unknown Completed [facility] HPV Unknown Completed [facility] Influenza Virus Vaccine Unknown Completed [facility] Meningococcal Vaccine Unknown Completed [facility] MMR Unknown Completed [facility] Pneumococcal 13 Conjugate, PCV13 (Prevnar 13) Unknown Completed [facility] Polio (IPV/OPV) Unknown Completed [facility] Varicella (varivax)(chicken pox) Unknown Completed [facility] TDAP (ADACEL) VACCINE Unknown Completed [facility] DTAP Unknown Completed [facility] HIB 4 Dose Schedule Unknown Completed [facility] HEPATITIS A Unknown Completed [facility] Hep B, Adol or Pedi Dosage Unknown Completed [facility] HPV Unknown Completed [facility] Influenza Virus Vaccine Unknown Completed [facility] Meningococcal Vaccine Unknown Completed [facility] MMR Unknown Completed [facility] Pneumococcal 13 Conjugate, PCV13 (Prevnar 13) Unknown Completed [facility] Polio (IPV/OPV) Unknown Completed [facility] Varicella (varivax)(chicken pox) Unknown Completed [facility] TDAP (ADACEL) VACCINE Unknown Completed [facility] DTAP Unknown Completed [facility] HIB 4 Dose Schedule Unknown Completed [facility] HEPATITIS A Unknown Completed [facility] Hep B, Adol or Pedi Dosage Unknown Completed [facility] HPV Unknown Completed [facility] Influenza Virus Vaccine Unknown Completed [facility] Meningococcal Vaccine Unknown Completed [facility] MMR Unknown Completed [facility] Pneumococcal 13 Conjugate, PCV13 (Prevnar 13) Unknown Completed [facility] Polio (IPV/OPV) [facility]ic[facility] ([facility])(chicken pox) Unknown Completed [facility] TDAP (ADACEL) VACCINE Unknown Completed [facility] DTAP Unknown Completed [facility] HIB 4 Dose Schedule Unknown Completed [facility] HEPATITIS A Unknown Completed [facility] Hep B, Adol or Pedi Dosage Unknown Completed [facility] HPV Unknown Completed [facility] Influenza Virus Vaccine Unknown Completed [facility] Meningococcal Vaccine Unknown Completed [facility] MMR Unknown Completed [facility] Pneumococcal 13 Conjugate, PCV13 (Prevnar 13) Unknown Completed [facility] Polio (IPV/OPV) Unknown Completed [facility] Varicella (varivax)(chicken pox) Unknown Completed [facility] Vital Signs Vital Name Observation Time Observation Value Comments S ource Systolic blood pressure 2024-10-16 19:48:00 121 mm[Hg] [facility] Diastolic blood pressure 2024-10-16 19:48:00 73 mm[Hg] [facility] Heart rate 2024-10-16 19:48:00 104 /min [facility] Body temperature 2024-10-16 19:48:00 36.33 Kourtney [facility] Respiratory rate 2024-10-16 19:48:00 16 /min [facility] Body height 2024-10-16 19:48:00 157.5 cm [facility] Body weight 2024-10-16 19:48:00 76.658 kg [facility] BMI 2024-10-16 19:48:00 30.91 kg/m2 [facility] Systolic blood pressure 2024-09-12 21:20:00 121 mm[Hg] [facility] Diastolic blood pressure 2024-09-12 21:20:00 71 mm[Hg] [facility] Heart rate 2024-09-12 21:20:00 97 /min [facility] Body temperature 2024-09-12 21:20:00 36.56 Kourtney [facility] Respiratory rate 2024-09-12 21:20:00 18 /min [facility] Body height 2024-09-12 21:20:00 157.5 cm [facility] Body weight 2024-09-12 21:20:00 73.392 kg [facility] BMI 2024-09-12 21:20:00 29.59 kg/m2 [facility] Systolic blood pressure 2024-08-19 21:45:00 127 mm[Hg] [facility] Diastolic blood pressure 2024-08-19 21:45:00 69 mm[Hg] [facility] Heart rate 2024-08-19 21:45:00 97 /min [facility] Body temperature 2024-08-19 21:45:00 36.56 Kourtney [facility] Respiratory rate 2024-08-19 21:45:00 16 /min [facility] Body height 2024-08-19 21:45:00 157.5 cm [facility] Body weight 2024-08-19 21:45:00 70.897 kg [facility] BMI 2024-08-19 21:45:00 28.59 kg/m2 [facility] Systolic blood pressure 2024-08-13 17:09:00 113 mm[Hg] [facility] Diastolic blood pressure 2024-08-13 17:09:00 69 mm[Hg] [facility] Heart rate 2024-08-13 17:09:00 91 /min [facility] Body temperature 2024-08-13 17:09:00 36.39 Kourtney [facility] Respiratory rate 2024-08-13 17:09:00 18 /min [facility] Body height 2024-08-13 17:09:00 157.5 cm [facility] Body weight 2024-08-13 17:09:00 71.895 kg [facility] BMI 2024-08-13 17:09:00 28.99 kg/m2 [facility] Systolic blood pressure 2024-06-25 18:54:00 106 mm[Hg] [facility] Diastolic blood pressure 2024-06-25 18:54:00 64 mm[Hg] [facility] Heart rate 2024-06-25 18:54:00 82 /min [facility] Body temperature 2024-06-25 18:54:00 36.94 Kourtney [facility] Respiratory rate 2024-06-25 18:54:00 17 /min [facility] Body height 2024-06-25 18:54:00 157.5 cm [facility] Body weight 2024-06-25 18:54:00 68.72 kg [facility] BMI 2024-06-25 18:54:00 27.71 kg/m2 [facility] Systolic blood pressure 2024-05-28 18:43:00 124 mm[Hg] [facility] Diastolic blood pressure 2024-05-28 18:43:00 79 mm[Hg] [facility] Heart rate 2024-05-28 18:43:00 95 /min [facility] Body temperature 2024-05-28 18:43:00 36.17 Kourtney [facility] Respiratory rate 2024-05-28 18:43:00 18 /min [facility] Body height 2024-05-28 18:43:00 157.5 cm [facility] Body weight 2024-05-28 18:43:00 69.037 kg [facility] BMI 2024-05-28 18:43:00 27.84 kg/m2 [facility] Systolic blood pressure 2023-07-22 14:51:00 122 mm[Hg] [facility] Diastolic blood pressure 2023-07-22 14:51:00 71 mm[Hg] [facility] Heart rate 2023-07-22 14:51:00 103 /min [facility] Body temperature 2023-07-22 14:51:00 36.5 Kourtney [facility] Respiratory rate 2023-07-22 14:51:00 18 /min [facility] Oxygen saturation in Arterial blood by Pulse oximetry 2023-07-22 14:51:00 98 /min [facility] Body height 2023-07-21 01:15:00 160 cm [facility] Body weight 2023-07-21 01:15:00 80.542 kg [facility] BMI 2023-07-21 01:15:00 31.46 kg/m2 [facility] Systolic blood pressure 2023-07-12 20:06:00 127 mm[Hg] [facility] Diastolic blood pressure 2023-07-12 20:06:00 75 mm[Hg] [facility] Heart rate 2023-07-12 20:06:00 99 /min [facility] Body temperature 2023-07-12 20:06:00 36.28 Kourtney [facility] Respiratory rate 2023-07-12 20:06:00 18 /min [facility] Body height 2023-07-12 20:06:00 160 cm [facility] Body weight 2023-07-12 20:06:00 80.542 kg [facility] BMI 2023-07-12 20:06:00 31.45 kg/m2 [facility] Systolic blood pressure 2023-07-03 21:00:00 130 mm[Hg] [facility] Diastolic blood pressure 2023-07-03 21:00:00 76 mm[Hg] [facility] Heart rate 2023-07-03 21:00:00 97 /min [facility] Body temperature 2023-07-03 21:00:00 35.89 Kourtney [facility] Respiratory rate 2023-07-03 21:00:00 18 /min [facility] Body height 2023-07-03 21:00:00 160 cm [facility] Body weight 2023-07-03 21:00:00 80.315 kg [facility] BMI 2023-07-03 21:00:00 31.37 kg/m2 [facility] Systolic blood pressure 2023-02-15 20:00:00 106 mm[Hg] [facility] Diastolic blood pressure 2023-02-15 20:00:00 64 mm[Hg] [facility] Heart rate 2023-02-15 20:00:00 94 /min [facility] Body temperature 2023-02-15 20:00:00 36.5 Kourtney [facility] Respiratory rate 2023-02-15 20:00:00 18 /min [facility] Body height 2023-02-15 20:00:00 160 cm [facility] Body weight 2023-02-15 20:00:00 65.545 kg [facility] BMI 2023-02-15 20:00:00 25.60 kg/m2 [facility] Systolic blood pressure 2023-01-06 15:00:00 114 mm[Hg] [facility] Diastolic blood pressure 2023-01-06 15:00:00 70 mm[Hg] [facility] Heart rate 2023-01-06 15:00:00 73 /min [facility] Body temperature 2023-01-06 15:00:00 36.61 Kourtney [facility] Respiratory rate 2023-01-06 15:00:00 18 /min [facility] Body height 2023-01-06 15:00:00 160 cm [facility] Body weight 2023-01-06 15:00:00 66.707 kg [facility] BMI 2023-01-06 15:00:00 26.05 kg/m2 [facility] Systolic blood pressure 2022-01-02 13:37:00 126 mm[Hg] [facility] Diastolic blood pressure 2022-01-02 13:37:00 84 mm[Hg] [facility] Heart rate 2022-01-02 13:37:00 84 /min [facility] Body temperature 2022-01-02 13:37:00 35.78 Kourtney [facility] Respiratory rate 2022-01-02 13:37:00 18 /min [facility] Oxygen saturation in Arterial blood by Pulse oximetry 2022-01-02 13:37:00 97 /min [facility] Body height 2021-12-31 06:40:00 157.5 cm [facility] Body weight 2021-12-31 06:40:00 80.196 kg [facility] BMI 2021-12-31 06:40:00 32.33 kg/m2 [facility] Body mass index (BMI) [Percentile] Per age and sex 2021-12-31 06:40:00 95.67 % [facility] Systolic blood pressure 2024-09-12 21:20:00 121 mm[Hg] [facility] Diastolic blood pressure 2024-09-12 21:20:00 71 mm[Hg] [facility] Heart rate 2024-09-12 21:20:00 97 /min [facility] Body temperature 2024-09-12 21:20:00 36.56 Kourtney [facility] Respiratory rate 2024-09-12 21:20:00 18 /min [facility] Body height 2024-09-12 21:20:00 157.5 cm [facility] Body weight 2024-09-12 21:20:00 73.392 kg [facility] BMI 2024-09-12 21:20:00 29.59 kg/m2 [facility] Oxygen saturation in Arterial blood by Pulse oximetry 2023-07-22 14:51:00 98 /min [facility] Procedures Procedure Date / Time Performed Performing Clinician Source GLUCOSE 1 HOUR POST PRANDIAL 2024-10-16 20:50:00 Kasey Felder [facility] CBC WITH DIFF 2024-10-16 20:50:00 Kasey Felder [facility] HIV 1/2 AG-AB WITH REFLEX 2024-10-16 20:50:00 Kasey Vasquez [facility] POCT URINALYSIS 2024-10-16 19:56:00 Abiola Anaya [facility] NIPT - NON-INVASIVE TEST RESULTS 2024-10-14 22:46:58 Doctor Unassigned, [place] [facility] NIPT - NON-INVASIVE TEST RESULTS 2024-10-14 22:46:58 Doctor Unassigned, [place] [facility] URINE CULTURE 2024-09-12 22:09:00 Abiola Anaya [facility] POCT URINALYSIS 2024-09-12 21:30:00 Abiola Anaya [facility] POCT URINALYSIS 2024-09-12 21:30:00 Abiola Anaya [facility] SECOND AND THIRD TRIMESTER ULTRASOUND 2024-09-12 21:04:00 Abiola Anaya [facility] SECOND AND THIRD TRIMESTER ULTRASOUND 2024-09-12 21:04:00 Abiola Anaya [facility] URINE CULTURE 2024-08-19 22:07:00 Abiola Anaya [facility] GALV ONLY - VAGINAL PATHOGENS BY NUCLEIC ACID TESTING 2024-08-19 22:07:00 Abiola Anaya [facility] POCT URINALYSIS 2024-08-19 21:46:00 Abiola Anaya [facility] POCT URINALYSIS 2024-08-19 21:46:00 Abiola Anaya [facility] POCT URINALYSIS 2024-08-13 17:14:00 Abiola Anaya [facility] POCT URINALYSIS 2024-08-13 17:14:00 Abiola Anaya [facility] SECOND AND THIRD TRIMESTER ULTRASOUND 2024-08-08 21:41:00 Abiola Anaya [facility] SECOND AND THIRD TRIMESTER ULTRASOUND 2024-08-08 21:41:00 Abiola Anaya [facility] ALPHA FETOPROTEIN-MATERNAL SER 2024-06-25 19:37:00 Abiola Anaya [facility] VZV ANTIBODY SCREEN 2024-06-25 19:37:00 Wayne Anaya [facility] GC & CHLAMYDIA AMPLIFIED ASSAY 2024-06-25 19:37:00 Abiola Anaya [facility] HIV 1/2 AG-AB WITH REFLEX 2024-06-25 19:37:00 Abiola Anaya [facility] SYPHILIS IGG/IGM 2024-06-25 19:37:00 Luis Anaya [facility] GC & CHLAMYDIA AMPLIFIED ASSAY 2024-06-25 19:37:00 Abiola Anaya [facility] HIV 1/2 AG-AB WITH REFLEX 2024-06-25 19:37:00 Abiola Anaya [facility] SECOND AND THIRD TRIMESTER ULTRASOUND 2024-06-14 21:48:00 Abiola Anaya [facility] GC & CHLAMYDIA AMPLIFIED ASSAY 2024-05-28 20:28:00 Abiola Anaya [facility] PAP SMEAR-LIQUID BASED-CP 2024-05-28 20:28:00 Abiola Anaya [facility] PAP SMEAR-LIQUID BASED-CP 2024-05-28 20:28:00 Abiola Anaya [facility] CBC WITH DIFF 2024-05-28 20:25:00 Abiola Anaya [facility] GLYCOSYLATED HEMOGLOBIN (A1C) 2024-05-28 20:25:00 Abiola Anaya [facility] RUBELLA SCREEN IGG 2024-05-28 20:25:00 Ajay Anaya [facility] HEPATITIS B SURFACE ANTIGEN 2024-05-28 20:25:00 Abiola Anaya [facility] HCV ANTIBODY 2024-05-28 20:25:00 Abiola Anaya [facility] HB ABO GROUPING 2024-05-28 20:25:00 Abiola Anaya [facility] HIV 1/2 AG-AB WITH REFLEX 2024-05-28 20:25:00 Abiola Anaya [facility] SYPHILIS IGG/IGM 2024-05-28 20:25:00 Luis Anaya [facility] HCV ANTIBODY 2024-05-28 20:25:00 Abiola Anaya [facility] URINE CULTURE 2024-05-28 20:07:00 Abiola Anaya [facility] POCT TEST 2024-05-28 00:00:00 Wayne Anaya [facility] POCT URINALYSIS W/O SPECIFIC GRAVITY 2024-05-28 00:00:00 Abiola Anaya [facility] DME/SUPPLY JUSTIFICATION 2023-07-26 06:01:00 Doc tor Unassigned, [place] [facility] CBC WITH DIFF 2023-07-22 10:10:00 [facility] 2023-07-21 09:01:00 Korey HobsonAngelal [facility] CBC WITH DIFF 2023-07-21 02:16:00 Ivette [facility] RUBELLA SCREEN IGG 2023-07-21 02:16:00 Ivette [facility] HEPATITIS B SURFACE ANTIGEN 2023-07-21 02:16:00 Ivette [facility] HB ABO GROUPING 2023-07-21 02:16:00 Joselo Steele [facility] RHO (D) IMMUNE GLOBULIN 2023-07-21 02:16:00 Dieudonne harvey [facility] EXTRA TUBE LAV 2023-07-21 02:16:00 oSham Briggs [facility] SYPHILIS IGG/IGM 2023-07-21 02:16:00 Soila Steele [facility] DME/SUPPLY JUSTIFICATION 2023-07-19 06:01:00 Doc tor Unassigned, [place] [facility] POCT URINALYSIS 2023-07-12 20:06:00 Kasey Felder [facility] SECOND AND THIRD TRIMESTER ULTRASOUND 2023-07-05 16:11:00 Kasey Felder [facility] GLUCOSE 1 HOUR POST PRANDIAL 2023-07-03 22:06:00 Kasey Feledr [facility] CBC WITH DIFF 2023-07-03 22:06:00 Kasey Felder [facility] GC & CHLAMYDIA AMPLIFIED ASSAY 2023-07-03 22:06:00 Kasey Feldre [facility] HIV 1/2 AG-AB WITH REFLEX 2023-07-03 22:06:00 Kasey Vasquez [facility] SYPHILIS IGG/IGM 2023-07-03 22:06:00 Kasey Felder [facility] POCT URINALYSIS 2023-07-03 21:04:00 Kasey Felder [facility] AUTHORIZATION TO RELEASE PHI TO [facility] 2023-07-03 06:01:00 Doctor Unassigned, [place] [facility] QUAD SCRN 2023-02-15 20:21:00 Abiola Anaya [facility] POCT URINALYSIS 2023-02-15 20:01:00 Kasey Felder [facility] URINE CULTURE 2023-01-06 15:53:00 Kasey Felder [facility] CBC WITH DIFF 2023-01-06 15:50:00 Kasey Felder [facility] RUBELLA SCREEN IGG 2023-01-06 15:50:00 Renae Felder [facility] VZV ANTIBODY SCREEN 2023-01-06 15:50:00 Juliet Felder [facility] HEPATITIS B SURFACE ANTIGEN 2023-01-06 15:50:00 Kasey Felder [facility] HCV ANTIBODY 2023-01-06 15:50:00 [facility] 2023-[facility]-06 15:50:00 Kasey Felder [facility] HIV 1/2 AG-AB WITH REFLEX 2023-01-06 15:50:00 Kasey Vasquez [facility] SYPHILIS IGG/IGM 2023-01-06 15:50:00 Kasey Felder [facility] POCT TEST 2023-01-06 14:49:00 Juliet Felder [facility] POCT URINALYSIS W/O SPECIFIC GRAVITY 2023-01-06 14:49:00 Kasey Felder [facility] ASSIGNMENT OF BENEFITS 2023-01-06 14:24:12 Docto r Unassigned, [place] [facility] VENOUS CORD GAS 2022-01-01 06:39:00 Mary Ellen Whitaker [facility] CENTRAL NEURAXIAL BLOCK 2021-12-31 19:30:55 Saeid Horan [facility] COVID-19 (ID NOW RAPID TESTING) 2021-12-31 05:47:00 Good Mendoza [facility] LAB ONLY COVID INTERPRETATION 2021-12-31 05:47:00 Good Mendoza [facility] CBC WITH DIFF 2021-12-31 05:14:00 Mary Ellen Whitaker [facility] HEPATITIS B SURFACE ANTIGEN 2021-12-31 05:13:00 Mary Ellen Whitaker [facility] HIV 1/2 AG-AB WITH REFLEX 2021-12-31 05:13:00 Mary Ellen Whitaker [facility] GALV ONLY - SYPHILIS IGG/IGM 2021-12-31 05:13:00 Mary Ellen Whitaker [facility] HB ABO GROUPING 2021-12-31 05:11:00 Mary Ellen Whitaker [facility] RHO (D) IMMUNE GLOBULIN 2021-12-31 05:11:00 Eyal Marvin [facility] Encounters Start Date/Time End Date/Time Encounter Type Admission Type Attending Clinicians Care Facility Care Department Encounter ID Source 2024-10-30 16:00:00 2024-10-30 16:15:39 Outpatient R KASEY FELDER [facility] [id number] [facility] 2024-10-17 00:00:00 2024-10-17 13:58:31 Telephone Kasey Felder [facility] DIE REPAIRER [facility] DIES [facility]ERNAL & [facility]ILD [facility] 1.840.114 350.1.13.10 4.2.7.2.686 [id number] [facility] 2024-10-16 13:30:00 2024-10-16 14:37:05 Routine Visit Kasey Felder [facility] DIE REPAIRER [facility] DIES [facility] MATERNAL & CHILD [facility] 1.2.840.114 350.1.13.10 4.2.7.2.686 [id number] [facility] 2024-10-16 13:30:00 2024-10-16 14:37:05 Outpatient R EMERITA KASEY [facility] [id number] [facility] 2024-10-14 00:00:00 2024-10-15 02:05:03 Orders Only Doctor Unassigned, [place] 1.2.840.1 16120.1.1 3.104.2.7 .3.791587 .8 [id number] [facility] 2024-10-11 06:45:00 2024-10-11 06:45:00 Outpatient R KASEY FELDER [facility] [id number] [facility] 2024-10-03 07:00:00 2024-10-03 07:00:00 Outpatient R ABIOLA ANAYA [facility] [id number] [facility] 2024-10-01 10:15:00 2024-10-01 10:15:00 Outpatient R ABIOLA ANAYA [facility] [id number] [facility] 2024-09-26 10:45:00 2024-09-26 10:45:00 Outpatient R ABIOLA ANAYA [facility] [id number] [facility] 2024-09-17 00:00:00 2024-09-17 15:35:38 Telephone Abiola Anaya 1.2.840.1 [id number] 3.104.2.7 .3.055226 .8 [id number] [facility] 2024-09-13 07:45:00 2024-09-13 07:45:00 Outpatient R [facility] [id number] [facility] 2024-09-12 00:00:00 2024-09-12 16:45:52 Abstract Abiola Anaya 1.2.840.1 [id number] 3.104.2.7 .3.744777 .8 [id number] [facility] 2024-09-12 15:45:00 2024-09-12 15:45:00 Routine Visit Abiola Anaya 1.2.840.1 [id number] 3.104.2.7 .3.992170 .8 [id number] [facility] 2024-09-12 14:30:00 2024-09-12 15:21:43 Outpatient P MAYELA CHAU SHANNON [facility] [id number] [facility] 2024-09-12 14:30:00 2024-09-12 15:21:43 Triage Register Nurse Visit Mayela Chau 1.2.840.1 [id number] 3.104.2.7 .3.472554 .8 [id number] [facility] 2024-09-12 00:00:00 2024-09-12 00:00:00 Travel 1.2.840.1 [id number] 3.104.2.7 .3.666689 .8 1.2.840.114 350.1.13.10 4.2.7.3.698 [id number] [facility] 2024-09-10 10:30:00 2024-09-10 10:30:00 Outpatient R ABIOLA ANAYA [facility] [id number] [facility] 2024-08-22 00:00:00 2024-08-22 08:32:44 Telephone Abiola Anaya 1.2.840.1 [id number] 3.104.2.7 .3.047006 .8 [id number] [facility] 2024-08-21 00:00:00 2024-08-21 12:37:51 Telephone Abiola Anaya 1.2.840.1 [id number] 3.104.2.7 .3.327461 .8 [id number] [facility] 2024-08-19 15:15:00 2024-08-19 16:06:20 Outpatient R ABIOLA ANAYA [facility] [id number] [facility] 2024-08-19 15:15:00 2024-08-19 16:06:20 Routine Visit Abiola Anaya 1.2.840.1 [id number] 3.104.2.7 .3.056952 .8 [id number] [facility] 2024-08-19 00:00:00 2024-08-19 00:00:00 Travel 1.2.840.1 13339.1.1 3.104.2.7 .3.683186 .8 1.2.840.114 350.1.13.10 4.2.7.3.698 084.8 [id number] [facility] 2024-08-13 10:45:00 2024-08-13 11:36:31 Outpatient R ABIOLA ANAYA [facility] [id number] [facility] 2024-08-13 10:45:00 2024-08-13 11:36:31 Routine Visit Abiola Anaya 1.2.840.1 [id number] 3.104.2.7 .3.995143 .8 [id number] [facility] 2024-08-13 00:00:00 2024-08-13 00:00:00 Travel 1.2.840.1 [id number] 3.104.2.7 .3.557160 .8 1.2.840.114 350.1.13.10 4.2.7.3.698 084.8 [id number] [facility] 2024-08-09 00:00:00 2024-08-09 07:29:41 Abstract Kasey Felder 1.2.840.1 [id number] 3.104.2.7 .3.322114 .8 [id number] [facility] 2024-08-08 14:00:00 2024-08-08 14:59:50 Outpatient P MAYELA CHAU SHANNON [facility] [id number] [facility] 2024-08-08 14:00:00 2024-08-08 14:59:50 Triage Register Nurse Visit Mayela Chau 1.2.840.1 [id number] 3.104.2.7 .3.914464 .8 [id number] [facility] 2024-08-08 00:00:00 2024-08-08 00:00:00 Travel 1.2.840.1 [id number] 3.104.2.7 .3.394643 .8 1.2.840.114 350.1.13.10 4.2.7.3.698 084.8 [id number] [facility] 2024-07-24 07:00:00 2024-07-24 07:00:00 Outpatient R ABIOLA ANAYA [facility] [id number] [facility] 2024-06-26 00:00:00 2024-06-27 13:24:06 Telephone Abiola Anaya [facility] DIE REPAIRER [facility]MER DIES [facility] MATERNAL & [facility] 1..840.114 350.1.13.10 4.2.7.2.686 [id number] [facility] 2024-06-25 12:45:00 2024-06-25 13:29:52 Outpatient R ABIOLA ANAYA [facility] [id number] [facility] 2024-06-25 12:45:00 2024-06-25 13:29:52 Routine Visit Abiola Anaya [facility] DIE REPAIRER TRIMMER DIES [facility] & CHILD [facility] 1..840.114 350.1.13.10 4.2.7.2.686 [id number] [facility] 2024-06-17 00:00:00 2024-06-17 16:26:49 Abstract Abiola Anaya [facility] DIE REPAIRER TRIMMER DIES [facility] & CHILD [facility] 1.840.114 350.1.13.10 4.2.7.2.686 [id number] [facility] 2024-06-14 15:30:00 2024-06-14 16:36:38 Outpatient R MAYELA CHAU [facility] [id number] [facility] 2024-06-14 15:30:00 2024-06-14 16:36:38 Triage Register Nurse Visit Ultrasound, Mayela Biggs [facility] DIE REPAIRER [employer]IM[employer] DIES [facility] & CHILD [facility] 1.840.114 350.1.13.10 4.2.7.2.686 [id number] [facility] 2024-06-03 00:00:00 2024-06-05 08:45:59 Telephone Abiola Anaya [facility] DIE REPAIRER [facility] 1.840.114 350.1.13.10 4.2.7.2.686 [id number] 107 [id number] [facility] 2024-05-28 13:00:00 2024-05-28 16:32:02 Outpatient R ABIOLA ANAYA [facility] [id number] [facility] 2024-05-28 13:00:00 2024-05-28 16:32:02 Initial Visit Abiola Anaya [facility] CHILD [facility] 1.84.114 350.1.13.10 4.2.7.2.686 [id number] 107 [id number] [facility] 2024-05-22 08:15:00 2024-05-22 08:15:00 Outpatient R ABIOLA ANAYA [facility] [id number] [facility] 2023-07-26 00:00:00 2023-07-26 00:00:00 Orders Only Doctor Unassigned, [place] [facility] 1.2.840.114 350.1.13.10 4.2.7.2.686 [id number] [facility] 2023-07-20 18:47:00 2023-07-22 17:22:00 Inpatient P SOHAM BRIGGS [facility] [id number] [facility] 2023-07-20 18:47:00 2023-07-22 17:22:00 Hospital Encounter Soham Briggs [facility] 1.2840.114 350.1.13.10 4.2.7.2.686 [id number] [facility] 2023-07-21 02:16:00 2023-07-21 07:22:00 Anesthesia Event Kaycee Hobson, Yefri Martinez [facility] 1.84.114 350.1.13.10 4.2.7.2.686 [id number] [facility] 2023-07-19 00:00:00 2023-07-19 00:00:00 Orders Only Doctor Unassigned, [place] [facility] 1.20.114 350.1.13.10 4.2.7.2.686 [id number] [facility] 2023-07-12 13:45:00 2023-07-12 14:18:13 Outpatient R KASEY FELDER [facility] [id number] [facility] 2023-07-12 13:45:00 2023-07-12 14:18:13 Routine Visit Kasey Felder [facility] D[facility]PA[facility]3] 1.840.114 350.1.13.10 4.2.7.2.686 [id number] [facility] 2023-07-05 09:45:00 2023-07-05 11:04:41 Outpatient P NISREEN MONZON SANGEETA [facility] [id number] [facility] 2023-07-05 09:45:00 2023-07-05 11:04:41 Triage Register Nurse Visit 4, [facility] 1.2.840.114 350.1.13.10 4.2.7.2.686 [id number] [facility] 2023-07-05 00:00:00 2023-07-05 00:00:00 Case Management Kasey Felder [facility]ERNAL & CHILD [facility] 1.2.840.114 350.1.13.10 4.2.7.2.686 [id number] [facility] 2023-07-05 00:00:00 2023-07-05 00:00:00 Case Management Kasey Felder [facility]PA[facility] 1.2.840.114 350.1.13.10 4.2.7.2.686 [id number] [facility] 2023-07-05 00:00:00 2023-07-05 00:00:00 Telephone Abiola Anaya [facility] 1.2.840.114 350.1.13.10 4.2.7.2.686 [id number] 107 [id number] [facility] 2023-07-04 00:00:00 2023-07-04 00:00:00 Telephone Kasey Felder [facility] D[facility]PA[facility] 1.2.840.114 350.1.13.10 4.2.7.2.686 [id number] [facility] 2023-07-03 15:15:00 2023-07-03 15:30:58 Outpatient R KASEY FELDER [facility] [id number] [facility] 2023-07-03 15:15:00 2023-07-03 15:30:58 Routine Visit Kasey Felder [facility] D[facility]PA[facility]ER[facility] & [facility] 1.2.840.114 350.1.13.10 4.2.7.2.686 [id number] 107 [id number] [facility] 2023-07-03 00:00:00 2023-07-03 00:00:00 Orders Only Doctor Unassigned, [place] [facility] 1.2.840.114 350.1.13.10 4.2.7.2.686 [id number] [facility] 2023-07-03 00:00:00 2023-07-03 00:00:00 Telephone Kasey Felder [facility] D[facility]PA[facility] MATERNAL & CHILD [facility] 1.2.840.114 350.1.13.10 4.2.7.2.686 [id number] 107 [id number] [facility] 2023-05-10 07:45:00 2023-05-10 07:45:00 Outpatient R KASEY FELDER [facility] [id number] [facility] 2023-05-04 00:00:00 2023-05-04 00:00:00 Telephone Kasey Felder [facility] D[facility] REPA[facility] MATERNAL & CHILD [facility] 1.2.840.114 350.1.13.10 4.2.7.2.686 [id number] [facility] 2023-04-06 10:00:00 2023-04-06 10:00:00 Outpatient R KASEY FELDER [facility] [id number] [facility] 2023-03-24 14:15:00 2023-03-24 14:15:00 Outpatient P [facility] [id number] [facility] 2023-03-24 12:45:00 2023-03-24 12:45:00 Outpatient R ABIOLA ANAYA [facility] [id number] [facility] 2023-03-08 09:30:00 2023-03-08 09:30:00 Outpatient R KASEY FELDER [facility] [id number] [facility] 2023-02-23 09:30:00 2023-02-23 09:30:00 Outpatient P [facility] [id number] [facility] 2023-02-17 09:45:00 2023-02-17 09:45:00 Outpatient R KASEY FELDER [facility] [id number] [facility] 2023-02-16 13:00:00 2023-02-16 13:00:00 Outpatient R ABIOLA ANAYA [facility] [id number] [facility] 2023-02-15 15:00:00 2023-02-15 15:22:08 Outpatient R ABIOLA ANAYA [facility] [id number] [facility] 2023-02-15 15:00:00 2023-02-15 15:22:08 Routine Visit Abiola Anaya [facility] D[facility] REPA[facility] & [facility] 1.2.840.114 350.1.13.10 4.2.7.2.686 [id number] 107 [id number] [facility] 2023-02-03 09:30:00 2023-02-03 09:30:00 Outpatient R KASEY FELDER [facility] [id number] [facility] 2023-01-25 10:45:00 2023-01-25 10:45:00 Outpatient P [facility] [id number] [facility] 2023-01-09 00:00:00 2023-01-09 00:00:00 Patient Secure Kasey Yusuf [facility] D[facility]PA[facility] MATERNAL & CHILD [facility] 1.2.840.114 350.1.13.10 4.2.7.2.686 [id number] 107 [id number] [facility] 2023-01-06 09:45:00 2023-01-06 10:55:17 Outpatient R KASEY FELDER [facility] [id number] [facility] 2023-01-06 09:45:00 2023-01-06 10:55:17 Initial Visit Kasey Felder [facility] D[facility] REPA[facility] 1.840.114 350.1.13.10 4.2.7.2.686 [id number] 107 [id number] [facility] 2023-01-06 00:00:00 2023-01-06 00:00:00 Orders Only Doctor Unassigned, [place] [facility] 1.840.114 350.1.13.10 4.2.7.2.686 [id number] [facility] 2022-12-28 08:30:00 2022-12-28 08:30:00 Outpatient R ABIOLA ANAYA [facility] [id number] [facility] 2021-12-30 21:28:00 2022-01-02 16:04:00 Hospital Encounter Good Mendoza Ikshelly [facility] 1.840.114 350.1.13.10 4.2.7.2.686 [id number] [facility] 2021-12-31 14:00:00 2022-01-01 03:25:00 Anesthesia Event Marcus Stokes Rakesh B [facility] 1.84.114 350.1.13.10 4.2.7.2.686 [id number] [facility] 2021-12-30 21:28:00 2021-12-30 21:28:00 Inpatient P GOOD MENDOZA [facility] [id number] [facility] 2021-12-30 09:15:00 2021-12-30 10:35:57 Outpatient R ELIZABETH YOUNG [facility] [id number] [facility] 2021-12-30 09:15:00 2021-12-30 10:35:57 Routine Visit Hilario Youngadriano Cm [facility] D[facility]PA[facility] MATERNAL & CHILD [facility] 1..840.114 350.1.13.10 4.2.7.2.686 [id number] [facility] 2021-12-30 09:15:00 2021-12-30 10:35:57 Outpatient ELO WILLARDINDIRAAdriano [facility] [id number] [facility] 2021-12-23 09:15:00 2021-12-23 11:38:22 Outpatient ADRIANA WILLARDEDILMA [facility] [id number] [facility] 2021-12-23 09:15:00 2021-12-23 09:30:00 Routine Visit Adriana Youngayanindiraadriano Cm [facility] DIE REPAIR[facility]ILD [facility] 1..840.114 350.1.13.10 4.2.7.2.686 [id number] 107 [id number] [facility] 2021-12-23 09:15:00 2021-12-23 09:15:00 Outpatient ADRINAA WILLARDEDILMA [facility] [id number] [facility] 2021-12-10 09:00:00 2021-12-10 09:53:30 Outpatient ADRIANA WILLARDEDILMA [facility] [id number] [facility] 2021-12-10 09:00:00 2021-12-10 09:53:30 Routine Visit Adriana Youngayanindiraadriano [facility] DIE REPAIRER [facility] CHILD [facility] 1..840.114 350.1.13.10 4.2.7.2.686 [id number] 107 [id number] [facility] 2021-12-08 08:45:00 2021-12-08 08:45:00 Outpatient Soila YOUNG ELIZABETH [facility] [id number] [facility] 2021-11-24 08:45:00 2021-11-24 09:13:11 Outpatient ELIZABETH WILLARD [facility] [id number] [facility] 2021-11-24 08:45:00 2021-11-24 09:13:11 Routine Visit Elizabeth Young Soila [facility] DIE REPAIRER [facility] MATERNAL & CHILD [facility] 1.2.840.114 350.1.13.10 4.2.7.2.686 [id number] [facility] 2021-11-24 08:45:00 2021-11-24 08:45:00 Outpatient ADRIANA WILLARDEDILMA [facility] [id number] [facility] 2021-11-10 07:45:00 2021-11-10 09:21:02 Routine Visit Hilario Youngadriano Cm [facility] DIE REPAIRER [facility]ILD [facility] 1..840.114 350.1.13.10 4.2.7.2.686 [id number] 107 [id number] [facility] 2021-11-10 07:45:00 2021-11-10 09:21:02 Outpatient R HILARIO YOUNGAdriano [facility] [id number] [facility] 2021-11-10 07:45:00 2021-11-10 07:45:00 Outpatient R ADRIANA YOUNGEDILMA [facility] [id number] [facility] 2021-10-27 15:30:00 2021-10-27 15:30:00 Outpatient R HILARIO YOUNGAdriano [facility] [id number] [facility] 2021-10-27 15:30:00 2021-10-27 15:30:00 Routine Visit Elizabeth Young [facility] DIE REPAIRER [facility]ILD [facility] 1..840.114 350.1.13.10 4.2.7.2.686 [id number] 107 [id number] [facility] 2021-10-27 15:30:00 2021-10-27 15:04:05 Outpatient R ADRIANA YOUNGREYNALDOAdriano [facility] [id number] [facility] 2021-10-18 00:00:00 2021-10-18 00:00:00 Telephone Elizabeth Young Soila [facility] DIE REPAIRER [facility] 1..840.114 350.1.13.10 4.2.7.2.686 [id number] 107 [id number] [facility] 2021-10-15 11:00:00 2021-10-15 11:43:49 Outpatient R ADRIANA YOUNGEDILMA [facility] [id number] [facility] 2021-10-15 11:00:00 2021-10-15 11:43:49 Routine Visit Hilario Youngadriano Cm [facility] DIE REPAIRER [facility] 1.840.114 350.1.13.10 4.2.7.2.686 [id number] [facility] 2021-10-01 11:00:00 2021-10-01 11:35:42 Outpatient R ADRIANA YOUNGEDILMA [facility] [id number] [facility] 2021-10-01 11:00:00 2021-10-01 11:35:42 Routine Visit YoungElizabeth Damilola C [facility] DIE REPAIRER [facility]ILD [facility] 1.840.114 350.1.13.10 4.2.7.2.686 [id number] 107 [id number] [facility] 2021-09-17 00:00:00 2021-09-17 00:00:00 Abiola Watts [facility] DIE REPAIRER [facility]ILD [facility] 1..840.114 350.1.13.10 4.2.7.2.686 [id number] 107 [id number] [facility] 2021-09-03 10:30:00 2021-09-03 11:40:09 Outpatient P ABIOLA ANAYA [facility] [id number] [facility] 2021-09-03 10:30:00 2021-09-03 11:30:00 Triage Register Nurse Visit Ultrasound, [facility] Anayastephen Ventura [facility] DIE REPAIRER [facility]ILD [facility] 1.840.114 350.1.13.10 4.2.7.2.686 [id number] [facility] 2021-09-03 09:00:00 2021-09-03 09:36:36 Routine Visit JaclynAjayAbiola C [facility] DIE REPAIRER [facility] 1.840.114 350.1.13.10 4.2.7.2.686 [id number] 107 [id number] [facility] 2021-09-03 09:00:00 2021-09-03 09:00:00 Outpatient R CLARISSAPIEDADKATHRYNAJAYABIOLA [facility] [id number] [facility] 2021-09-03 00:00:00 2021-09-03 00:00:00 Telephone JaclynAbiola [facility] 1..840.114 350.1.13.10 4.2.7.2.686 [id number] 107 [id number] [facility] 2021-08-16 10:00:00 2021-08-16 10:50:42 Outpatient MARIA G YUSUF [facility] [id number] [facility] 2021-08-16 10:00:00 2021-08-16 10:50:42 Routine Visit Maria G Leigh [facility] 1.840.114 350.1.13.10 4.2.7.2.686 [id number] 107 [id number] [facility] 2021-08-16 10:00:00 2021-08-16 10:00:00 Outpatient R MARIA G LEIGH [facility] [id number] [facility] 2021-08-02 00:00:00 2021-08-02 00:00:00 Telephone Maria G Leigh [facility] DIE REPAIRER [facility] 1.2.840.114 350.1.13.10 4.2.7.2.686 [id number] 107 [id number] [facility] 2021-07-20 09:54:17 2021-07-20 10:26:49 Routine Visit Maria G Leigh [facility] DIE REPAIRER [facility] 1.2.840.114 350.1.13.10 4.2.7.2.686 [id number] [facility] 2021-07-20 09:45:00 2021-07-20 10:26:49 Outpatient R MARIA G LEIGH [facility] [id number] [facility] 2021-07-20 09:45:00 2021-07-20 10:26:49 Outpatient Soila LEIGHMARIA G [facility] [id number] [facility] 2021-07-12 14:15:00 2021-07-12 16:41:10 Triage Register Nurse Visit Lab, [facility] Mayela Chau [facility] 1.84.114 350.1.13.10 4.2.7.2.686 [id number] [facility] 2021-07-12 13:10:51 2021-07-12 14:25:28 Triage Register Nurse Visit 5, [facility] Mayela Chau [facility] 1..114 350.1.13.10 4.2.7.2.686 [id number] [facility] 2021-07-12 14:15:00 2021-07-12 14:15:00 Outpatient MAYELA AVILES SHANNON [facility] [id number] [facility] 2021-07-12 00:00:00 2021-07-12 00:00:00 [facility]..114 350.1.13.10 4.2.7.2.686 [id number] [facility] 2021-06-24 00:00:00 2021-06-24 00:00:00 Telephone Maria G Leigh [facility] DIE REPAIRER [facility] MATERNAL & CHILD [facility] 1.284.114 350.1.13.10 4.2.7.2.686 [id number] [facility] 2021-06-22 13:31:55 2021-06-22 14:17:44 Initial Visit Maria G Leigh [facility] DIE REPAIRER [facility] 1.840.114 350.1.13.10 4.2.7.2.686 [id number] 107 [id number] [facility] 2021-06-22 13:15:00 2021-06-22 14:17:44 Outpatient R MARIA G LEIHG [facility] [id number] [facility] 2021-06-22 12:45:00 2021-06-22 13:32:02 Outpatient R MARIA G LEIGH [facility] [id number] [facility] 2021-06-22 00:00:00 2021-06-22 00:00:00 Orders Only Doctor Unassigned, [place] [facility] 1.840.114 350.1.13.10 4.2.7.2.686 [id number] [facility] Results Test Description Test Time Test Comments Results Result Co mments Source [facility] with [id number] 06:10:48* Test Item Value Reference Range Interpretation Comme nts WBC (test code = 6690-2) 10.86 4.30-11.10 RBC (test code = 789-8) 4.27 3.93-5.25 HGB (test code = 718-7) 7.9 g/dL 11.6-15.0 L HCT (test code = 4544-3) 27.2 % 35.7-45.2 L MCV (test code = 787-2) 63.7 fL 80.6-95.5 L MCH (test code = 785-6) 18.5 pg 25.9-32.8 L MCHC (test code = 786-4) 29.0 g/dL 31.6-35.1 L RDW-SD (test code = 51233-4) 38.0 fL 39.0-49.9 L RDW-CV (test code = 788-0) 16.8 % 12.0-15.5 H PLT (test code = 777-3) 389 166-358 H MPV (test code = 52339-6) 10.2 fL 9.5-12.9 NRBC/100 WBC (test code = 2745453555) 0.0 0.0-10.0 NRBC x10^3 (test code = 7281140612) See_Comment [Automated messa ge] The system which generated this result transmitted reference range: 10*3/?L. The reference range was not used to interpret this result as normal/abnormal. GRAN MAT (NEUT) % (test code = 770-8) 72.9 % IMM GRAN % (test code = 8647674449) 0.60 % LYMPH % (test code = 736-9) 17.7 % MONO % (test code = 5905-5) 6.7 % EOS % (test code = 713-8) 1.6 % BASO % (test code = 706-2) 0.5 % GRAN MAT x10^3(ANC) (test code = 3441850790) 7.92 10*3/uL 1.88-7.09 H IMM GRAN x10^3 (test code = 7370920297) 0.07 10*3/uL 0.00-0.06 H LYMPH x10^3 (test code = 731-0) 1.92 10*3/uL 1.32-3.29 MONO x10^3 (test code = 742-7) 0.73 10*3/uL 0.33-0.92 EOS x10^3 (test code = 711-2) 0.17 10*3/uL 0.03-0.39 BASO x10^3 (test code = 704-7) 0.05 10*3/uL 0.01-0.07 Lab Interpretation (test code = 53100-3) [facility] [id number] 06:05:47* Test Item Value Reference Range Interpretation Comme nts GLUC 1 HR (test code = 8913972533) 109 mg/dL 120-170 L Lab Interpretation (test cod e = 00281-0) [facility] W SPECIFIC [id number] 19:56:00* Test Item Value Reference Range Interpretation Comme nts POCT U SP GRAV (test code = 3255) . 1.005-1.025 POCT PH U (test code = 3254) 5 mg/dl 5-8 POCT U LEUK EST (test code = 3263) 1+ Negative - Negative POCT U NIT (test code = 3262) Neg Negative - Negati ve POCT U PROT (test code = 3259) 1+ Negative - Negat eboni POCT U GLU (test code = 3256) Nml Negative - Negati ve POCT U KETONE (test code = 3258) None Negative - Neg ative POCT U UROBILI (test code = 3260) . 0.2-1 POCT U BILI (test code = 3261) . Negative - Negat eboni POCT U BLD (test code = 3257) Trace Negative - Negati ve POCT U COLOR (test code = 3266) . POCT U APPEAR (test code = 3267) . [facility] - NON-INVASIVE TEST RESULTS 2024-10-14 22:46:58Ordered by an unspecified provider.[facility] URINALYSIS W SPECIFIC [id number] 21:30:00* Test Item Value Reference Range Interpretation Comme nts POCT U SP GRAV (test code = 3255) . 1.005-1.025 POCT PH U (test code = 3254) . 5-8 POCT U LEUK EST (test code = 3263) . Negative - N egative POCT U NIT (test code = 3262) . Negative - Negati ve POCT U PROT (test code = 3259) trace Negative - Negat eboni POCT U GLU (test code = 3256) neg Negative - Negati ve POCT U KETONE (test code = 3258) . Negative - Neg ative POCT U UROBILI (test code = 3260) . 0.2-1 POCT U BILI (test code = 3261) . Negative - Negat eboni POCT U BLD (test code = 3257) . Negative - Negati ve POCT U COLOR (test code = 3266) . POCT U APPEAR (test code = 3267) [facility] URINALYSIS W SPECIFIC [id number] 21:46:00* Test Item Value Reference Range Interpretation Comme nts POCT U SP GRAV (test code = 3255) . 1.005-1.025 POCT PH U (test code = 3254) 5 mg/dl 5-8 POCT U LEUK EST (test code = 3263) 2+ Negative - Negative POCT U NIT (test code = 3262) + Negative - Negati ve POCT U PROT (test code = 3259) 2+ Negative - Negat eboni POCT U GLU (test code = 3256) neg Negative - Negati ve POCT U KETONE (test code = 3258) 1+ Negative - Neg ative POCT U UROBILI (test code = 3260) . 0.2-1 POCT U BILI (test code = 3261) . Negative - Negat eboni POCT U BLD (test code = 3257) 250 Negative - Negati ve POCT U COLOR (test code = 3266) POCT U APPEAR (test code = 3267) [facility] URINALYSIS W SPECIFIC [id number] 17:14:00* Test Item Value Reference Range Interpretation Comme nts POCT U SP GRAV (test code = 3255) . 1.005-1.025 POCT PH U (test code = 3254) . 5-8 POCT U LEUK EST (test code = 3263) . Negative - N egative POCT U NIT (test code = 3262) . Negative - Negati ve POCT U PROT (test code = 3259) Trace Negative - Negat eboni POCT U GLU (test code = 3256) Nml Negative - Negati ve POCT U KETONE (test code = 3258) . Negative - Neg ative POCT U UROBILI (test code = 3260) . 0.2-1 POCT U BILI (test code = 3261) . Negative - Negat eboni POCT U BLD (test code = 3257) . Negative - Negati ve POCT U COLOR (test code = 3266) . POCT U APPEAR (test code = 3267) ... [facility] [id number] 18:00:37 * Test Item Value Reference Range Interpretation Comme [facility] Rubella screen IgG (test code = 2555089336) Negative Negative MELODIE (test code = MELODIE) Positive - Indicat es the patient was exposed to Rubella through infection or vaccination.Negative - Indicates the patient could be susceptible to Rubella infection.Equivocal - A second specimen should be sent. [facility] - SYPHILIS [id number] 15:51:56* Test Item Value Reference Range Interpretation Comme [facility] Syphilis IgG/IgM (test code = 19777-7) Non-reactive Non-reactive MELODIE (test code = MELODIE) Non-reactive - No serologic evidence of T. pallidum infection. Cannot exclude incubating or early syphilis. Submit a second specimen in 2-4 weeks if syphilis is clinically suspected. Equivocal - Further testing to follow. Reactive - Further testing to follow. Lab Interpretation (test code = 73792-3) [facility]-AB WITH [id number] 12:07:18* Test Item Value Reference Range Interpretation Comme [facility] HIV Semi-quantitative (test code = 26218-5) 0.08 Negative MELODIE (test code = MELODIE) Non-reactive for HIV-1 antigen and HIV-1/HIV-2 antibodies. ?No laboratory evidence of HIV infection. ?Repeat in 2-4 weeks if acute HIV infection is suspected. [facility]cos[facility] Hemoglobin (A1C)[id number] 11:02:32* Test Item Value Reference Range Interpretation Comme [facility] HGB A1C (test code = 4548-4) 5.0 % 4.0-5.7 MELODIE (test code = MELODIE) Reference RangesNormal: <5.7%Prediabetes: 5.7 - 6.4%Diabetes: > 6.5% Lab Interpretation (test code = 42694-6) [facility]CV [id number] 10:56:09* Test Item Value Reference Range Interpretation Comme nts HCV Ab (test code = 58747-7) Negative HCV Semi-Quantitative (test code = 17070-0) 0.01 [facility] [id number] 10:43:06 * Test Item Value Reference Range Interpretation Comme nts HBsAg Semi-Quantitative (wily t code = 5195-3) 0.09 Negative [facility] WITH [id number] 05:43:54* Test Item Value Reference Range Interpretation Comme nts WBC (test code = 6690-2) 10.73 4.30-11.10 RBC (test code = 789-8) 4.91 3.93-5.25 HGB (test code = 718-7) 10.8 g/dL 11.6-15.0 L HCT (test code = 4544-3) 34.8 % 35.7-45.2 L MCV (test code = 787-2) 70.9 fL 80.6-95.5 L MCH (test code = 785-6) 22.0 pg 25.9-32.8 L MCHC (test code = 786-4) 31.0 g/dL 31.6-35.1 L RDW-SD (test code = 71427-2) 50.6 fL 39.0-49.9 H RDW-CV (test code = 788-0) 20.3 % 12.0-15.5 H PLT (test code = 777-3) 422 166-358 H MPV (test code = 81308-7) 10.8 fL 9.5-12.9 NRBC/100 WBC (test code = 9490907638) 0.0 0.0-10.0 NRBC x10^3 (test code = 2334298426) See_Comment [Automated messa ge] The system which generated this result transmitted reference range: 10*3/?L. The reference range was not used to interpret this result as normal/abnormal. GRAN MAT (NEUT) % (test code = 770-8) 68.4 % IMM GRAN % (test code = 4230440602) 0.30 % LYMPH % (test code = 736-9) 23.7 % MONO % (test code = 5905-5) 5.9 % EOS % (test code = 713-8) 1.2 % BASO % (test code = 706-2) 0.5 % GRAN MAT x10^3(ANC) (test code = 1683537023) 7.35 10*3/uL 1.88-7.09 H IMM GRAN x10^3 (test code = 3885943262) 0.03 10*3/uL 0.00-0.06 LYMPH x10^3 (test code = 731-0) 2.54 10*3/uL 1.32-3.29 MONO x10^3 (test code = 742-7) 0.63 10*3/uL 0.33-0.92 EOS x10^3 (test code = 711-2) 0.13 10*3/uL 0.03-0.39 BASO x10^3 (test code = 704-7) 0.05 10*3/uL 0.01-0.07 Lab Interpretation (test code = 41055-3) Abnormal [facility]LOOD [id number] 05:01:00 * Test Item Value Reference Range Interpretation Comme nts ABO & RH (test code = 20) A POSITIVE IAT (test code = 1185) Negative [facility] AustinPONH [id number] 18:38:00* Test Item Value Reference Range Interpretation Comme nts POCT PREG (test code = 1605) Positive On board controls acceptable with C Line (test code = 3574) Yes POCT PREG LOT # (test code = 3575) POCT PREG TEST DATE ( test code = 3576) [facility] Urinalysis w/o Specific [id number] 18:38:00* Test Item Value Reference Range Interpretation Comme nts POCT PH U (test code = 3254) 5 mg/dl 5-8 POCT U LEUK EST (test code = 3263) 2+ Negative - Negative POCT U NIT (test code = 3262) negative Negative - Negati ve POCT U PROT (test code = 3259) 1+ Negative - Negat eboni POCT U GLU (test code = 3256) normal Negative - Negati ve POCT U KETONE (test code = 3258) negative Negative - Neg ative POCT U BLD (test code = 3257) negative Negative - Negati ve [facility] AustinRubella Screen (LACEY) [id number] 18:26:50 * Test Item Value Reference Range Interpretation Comme nts Rubella screen IgG (test code = 0537841647) Negative Negative MELODIE (test code = MELODIE) Positive - Indicat es the patient was exposed to Rubella through infection or vaccination.Negative - Indicates the patient could be susceptible to Rubella infection.Equivocal - A second specimen should be sent. [facility] AustinGAL ONLY - SYPHILIS [id number] 16:52:16* Test Item Value Reference Range Interpretation Comme nts Syphilis IgG/IgM (test code = 06178-2) Non-reactive Non-reactive MELODIE (test code = MELODIE) Non-reactive - No serologic evidence of T. pallidum infection. Cannot exclude incubating or early syphilis. Submit a second specimen in 2-4 weeks if syphilis is clinically suspected. Equivocal - Further testing to follow. Reactive - Further testing to follow. Lab Interpretation (test code = 66987-7) Normal [facility] AustinRHO (D) IMMUNE [id number] 14:32:23* Test Item Value Reference Range Interpretation Comme nts RHIG CANDIDATE? (test code = 5188) No- see comment Patient is not a candidate for RhIg- Patient is Rh Positive.Performed at [facility] Laboratory Services - [facility] Blood [address] [place] [address]Otul Free: [phone] No. [id number] [facility] AustinHepatitis B Surface [id number] 03:56:47 * Test Item Value Reference Range Interpretation Comme nts HBsAg Semi-Quantitative (wily t code = 5195-3) 0.06 Negative [facility] WITH [id number] 03:01:13* Test Item Value Reference Range Interpretation Comme nts WBC (test code = 6690-2) 11.96 See_Comment H [Automated messa ge] The system which generated this result transmitted reference range: 4.30 - 11.10 10*3/?L. The reference range was not used to interpret this result as normal/abnormal. RBC (test code = 789-8) 3.83 See_Comment L [Automated messa ge] The system which generated this result transmitted reference range: 3.93 - 5.25 10*6/?L. The reference range was not used to interpret this result as normal/abnormal. HGB (test code = 718-7) 7.5 g/dL 11.6-15.0 L HCT (test code = 4544-3) 25.2 % 35.7-45.2 L MCV (test code = 787-2) 65.8 fL 80.6-95.5 L MCH (test code = 785-6) 19.6 pg 25.9-32.8 L MCHC (test code = 786-4) 29.8 g/dL 31.6-35.1 L RDW-SD (test code = 10884-4) 40.8 fL 39.0-49.9 RDW-CV (test code = 788-0) 17.5 % 12.0-15.5 H PLT (test code = 777-3) 407 See_Comment H [Automated messa ge] The system which generated this result transmitted reference range: 166 - 358 10*3/?L. The reference range was not used to interpret this result as normal/abnormal. MPV (test code = 34427-9) 10.0 fL 9.5-12.9 NRBC/100 WBC (test code = 0527137707) 0.3 See_Comment [Automated Lat49 ssage] The system which generated this result transmitted reference range: 0.0 - 10.0 /100 WBCs. The reference range was not used to interpret this result as normal/abnormal. NRBC x10^3 (test code = 0596745868) 0.04 See_Comment [Automated messa ge] The system which generated this result transmitted reference range: 10*3/?L. The reference range was not used to interpret this result as normal/abnormal. GRAN MAT (NEUT) % (test code = 770-8) 70.9 % IMM GRAN % (test code = 0085998505) 1.80 % LYMPH % (test code = 736-9) 18.1 % MONO % (test code = 5905-5) 6.7 % EOS % (test code = 713-8) 2.2 % BASO % (test code = 706-2) 0.3 % GRAN MAT x10^3(ANC) (test code = 6996764678) 8.48 10*3/uL 1.88-7.09 H IMM GRAN x10^3 (test code = 4054052900) 0.21 10*3/uL 0.00-0.06 H LYMPH x10^3 (test code = 731-0) 2.17 10*3/uL 1.32-3.29 MONO x10^3 (test code = 742-7) 0.80 10*3/uL 0.33-0.92 EOS x10^3 (test code = 711-2) 0.26 10*3/uL 0.03-0.39 BASO x10^3 (test code = 704-7) 0.04 10*3/uL 0.01-0.07 Lab Interpretation (test code = 51522-8) Abnormal [facility] AustinType and Screen - ONCE [id number] 02:24:00 * Test Item Value Reference Range Interpretation Comme nts ABO & RH (test code = 20) A POSITIVE IAT (test code = 1185) Negative [facility] AustinPOCT URINALYSIS W SPECIFIC [id number] 20:07:00* Test Item Value Reference Range Interpretation Comme nts POCT U SP GRAV (test code = 3255) . 1.005-1.025 POCT PH U (test code = 3254) 6 mg/dl 5-8 POCT U LEUK EST (test code = 3263) Trace Negative - Negative POCT U NIT (test code = 3262) Neg Negative - Negati ve POCT U PROT (test code = 3259) Trace Negative - Negat eboni POCT U GLU (test code = 3256) Nml Negative - Negati ve POCT U KETONE (test code = 3258) None Negative - Neg ative POCT U UROBILI (test code = 3260) . 0.2-1 POCT U BILI (test code = 3261) . Negative - Negat eboni POCT U BLD (test code = 3257) Trace Negative - Negati ve POCT U COLOR (test code = 3266) POCT U APPEAR (test code = 3267) [facility] URINALYSIS W SPECIFIC [id number] 20:07:00* Test Item Value Reference Range Interpretation Comme nts POCT U SP GRAV (test code = 3255) . 1.005-1.025 POCT PH U (test code = 3254) 6 mg/dl 5-8 POCT U LEUK EST (test code = 3263) Trace Negative - Negative POCT U NIT (test code = 3262) Neg Negative - Negati ve POCT U PROT (test code = 3259) Trace Negative - Negat eboni POCT U GLU (test code = 3256) Nml Negative - Negati ve POCT U KETONE (test code = 3258) None Negative - Neg ative POCT U UROBILI (test code = 3260) . 0.2-1 POCT U BILI (test code = 3261) . Negative - Negat eboni POCT U BLD (test code = 3257) Trace Negative - Negati ve POCT U COLOR (test code = 3266) POCT U APPEAR (test code = 3267) [facility] URINALYSIS W SPECIFIC [id number] 21:04:00* Test Item Value Reference Range Interpretation Comme nts POCT U SP GRAV (test code = 3255) . 1.005-1.025 POCT PH U (test code = 3254) 5 mg/dl 5-8 POCT U LEUK EST (test code = 3263) 2+ Negative - Negative POCT U NIT (test code = 3262) Neg Negative - Negati ve POCT U PROT (test code = 3259) Trace Negative - Negat eboni POCT U GLU (test code = 3256) Nml Negative - Negati ve POCT U KETONE (test code = 3258) None Negative - Neg ative POCT U UROBILI (test code = 3260) . 0.2-1 POCT U BILI (test code = 3261) . Negative - Negat eboni POCT U BLD (test code = 3257) Trace Negative - Negati ve POCT U COLOR (test code = 3266) POCT U APPEAR (test code = 3267) [facility] [id number] 21:04:00* Test Item Value Reference Range Interpretation Comme nts POCT U SP GRAV (test code = 3255) . 1.005-1.025 POCT PH U (test code = 3254) 5 mg/dl 5-8 POCT U LEUK EST (test code = 3263) 2+ Negative - Negative POCT U NIT (test code = 3262) Neg Negative - Negati ve POCT U PROT (test code = 3259) Trace Negative - Negat eboni POCT U GLU (test code = 3256) Nml Negative - Negati ve POCT U KETONE (test code = 3258) None Negative - Neg ative POCT U UROBILI (test code = 3260) . 0.2-1 POCT U BILI (test code = 3261) . Negative - Negat eboni POCT U BLD (test code = 3257) Trace Negative - Negati ve POCT U COLOR (test code = 3266) POCT U APPEAR (test code = 3267) [facility] URINALYSIS W SPECIFIC [id number] 21:04:00* Test Item Value Reference Range Interpretation Comme nts POCT U SP GRAV (test code = 3255) . 1.005-1.025 POCT PH U (test code = 3254) 5 mg/dl 5-8 POCT U LEUK EST (test code = 3263) 2+ Negative - Negative POCT U NIT (test code = 3262) Neg Negative - Negati ve POCT U PROT (test code = 3259) Trace Negative - Negat eboni POCT U GLU (test code = 3256) Nml Negative - Negati ve POCT U KETONE (test code = 3258) None Negative - Neg ative POCT U UROBILI (test code = 3260) . 0.2-1 POCT U BILI (test code = 3261) . Negative - Negat eboni POCT U BLD (test code = 3257) Trace Negative - Negati ve POCT U COLOR (test code = 3266) POCT U APPEAR (test code = 3267) [facility] [id number] 19:19:18* Test Item Value Reference Range Interpretation Comments RACE (test code = 4148559195) WEIGHT (test code = 6974088901) 144.5 lbs GEST. AGE (test code = 1912606312) 16,6 INS. DEP (test code = 5025815544) No LMP (test code = 2426729120) [id number] US DATE (test code = 7449015747) PE DATE (test code = 7645692321) METHOD (test code = 9583615533) LMP MULT GEST (test code = 5759892109) No NTD HX (test code = 8145583138) No INITAL OR REPEAT (test code = 6948462539) Initial Testing SMOKER (test code = 9975885700) No RH (test code = 6399044031) INHIBIN (test code = 5072231766) 136.6 pg/mL AFP-MS (test code = 5741403958) 28.9 ng/mL ESTRIOL (test code = 9457764315) 0.87 ng/mL BHCG DOWNS (test code = 3375337550) 46319.0 mIU/mL AFP-MS MoM (test code = 8578439437) 0.80 BHCG MoM (test code = 9528273643) 0.94 INHIBIN MoM (test code = 2202094600) 0.95 E3 MoM (test code = 4850452560) 0.74 EQ AGE RSK (test code = 0543313825) < 15.0 less than catie t of a 15.0 year old DS APR (test code = 4903582086) 1:1170 DS INTERP (test code = 7577824522) See Note The risk of D own syndrome is LESS than the screening cut-off. Nofollow-up is indicated regarding this result. DS RSK (test code = 0147133552) 1:3520 The risk at mid-trimester is equal to 1:3520 DS SCRN (test code = 7506964005) Negative TRISOMY 18 (test code = 9422355578) See Note These serum m arker levels are not consistent with the pattern seen inTrisomy 18 pregnancies. Maternal serum screening will detectapproximately 60% of Trisomy 18 pregnancies. ES RSK (test code = 2886918880) 1:89800 The risk of Spike michael 18 is equal to 1:07015Tge Trisomy 18 cut-off is 1:45 ES SCRN (test code = 0677541640) Negative OSB INTERP (test code = 9279384243) See Note The maternal serum AFP result is NOT elevated for a of thisgestational age. The risk of an open neural tube defect is less thanthe screening cut-off. OSB RSK (test code = 1102434253) 1:54932 The risk of OSB is equal to 1:84727Otw OSB cut-off is 2.56 (1:104) OSB SCRN (test code = 3604740849) Negative INTERPRETATION (test code = 2859446622) N INTERPRETATION: SCREEN NEGATIVE [facility]PO[facility] W SPECIFIC [id number] 20:01:00* Test Item Value Reference Range Interpretation Comme nts POCT U SP GRAV (test code = 3255) . 1.005-1.025 POCT PH U (test code = 3254) . 5-8 POCT U LEUK EST (test code = 3263) . Negative - N egative POCT U NIT (test code = 3262) . Negative - Negati ve POCT U PROT (test code = 3259) 1+ Negative - Negat eboni POCT U GLU (test code = 3256) Neg Negative - Negati ve POCT U KETONE (test code = 3258) . Negative - Neg ative POCT U UROBILI (test code = 3260) . 0.2-1 POCT U BILI (test code = 3261) . Negative - Negat eboni POCT U BLD (test code = 3257) . Negative - Negati ve POCT U COLOR (test code = 3266) POCT U APPEAR (test code = 3267) [facility] AustinRUBELLA SCREEN (LACEY) [id number] 15:55:45 * Test Item Value Reference Range Interpretation Comme [facility] Rubella screen IgG (test code = 0564472880) Negative Negative MELODIE (test code = MELODIE) Positive - Indicat es the patient was exposed to Rubella through infection or vaccination.Negative - Indicates the patient could be susceptible to Rubella infection.Equivocal - A second specimen should be sent. [facility] AustinVZV ANTIBODY [id number] 15:55:45* Test Item Value Reference Range Interpretation Comme nts VZV IgG antibody (test code = 14252-1) Negative Negative MELODIE (test code = MELODIE) Positive - Indicat es the patient was exposed to VZV through infection or vaccination.Negative - Indicates the patient could be susceptible to VZV infection.Equivocal - A second specimen should be sent for testing. [facility] AustinGAL ONLY - SYPHILIS [id number] 14:54:23* Test Item Value Reference Range Interpretation Comme [facility] Syphilis IgG/IgM (test code = 21691-8) Non-reactive Non-reactive MELODIE (test code = MELODIE) Non-reactive - No serologic evidence of T. pallidum infection. Cannot exclude incubating or early syphilis. Submit a second specimen in 2-4 weeks if syphilis is clinically suspected. Equivocal - Further testing to follow. Reactive - Further testing to follow. Lab Interpretation (test code = 64481-9) Normal [facility] AustinHI 1/2 AG-AB WITH [id number] 08:15:23* Test Item Value Reference Range Interpretation Comme [facility] HIV Semi-quantitative (test code = 05050-2) 0.07 Negative MELODIE (test code = MELODIE) Non-reactive for HIV-1 antigen and HIV-1/HIV-2 antibodies. ?No laboratory evidence of HIV infection. ?Repeat in 2-4 weeks if acute HIV infection is suspected. [facility] AustinHCV [id number] 05:55:10* Test Item Value Reference Range Interpretation Comme [facility] HCV Ab (test code = 66729-2) Negative HCV Semi-Quantitative (test code = 05999-8) 0.01 [facility] AustinHEPATITIS B SURFACE [id number] 05:37:51 * Test Item Value Reference Range Interpretation Comme [facility] HBsAg Semi-Quantitative (wily t code = 5195-3) 0.05 Negative [facility] AustinCB WITH [id number] 04:53:05* Test Item Value Reference Range Interpretation Comme nts WBC (test code = 6690-2) 7.69 See_Comment [Automated messa ge] The system which generated this result transmitted reference range: 4.30 - 11.10 10*3/?L. The reference range was not used to interpret this result as normal/abnormal. RBC (test code = 789-8) 4.91 See_Comment [Automated messa ge] The system which generated this result transmitted reference range: 3.93 - 5.25 10*6/?L. The reference range was not used to interpret this result as normal/abnormal. HGB (test code = 718-7) 11.8 g/dL 11.6-15.0 HCT (test code = 4544-3) 38.3 % 35.7-45.2 MCV (test code = 787-2) 78.0 fL 80.6-95.5 L MCH (test code = 785-6) 24.0 pg 25.9-32.8 L MCHC (test code = 786-4) 30.8 g/dL 31.6-35.1 L RDW-SD (test code = 29045-4) 47.3 fL 39.0-49.9 RDW-CV (test code = 788-0) 16.7 % 12.0-15.5 H PLT (test code = 777-3) 406 See_Comment H [Automated messa ge] The system which generated this result transmitted reference range: 166 - 358 10*3/?L. The reference range was not used to interpret this result as normal/abnormal. MPV (test code = 43129-2) 10.3 fL 9.5-12.9 NRBC/100 WBC (test code = 9170300551) 0.0 See_Comment [Automated Lat49 ssage] The system which generated this result transmitted reference range: 0.0 - 10.0 /100 WBCs. The reference range was not used to interpret this result as normal/abnormal. NRBC x10^3 (test code = 4501361410) See_Comment [Automated messa ge] The system which generated this result transmitted reference range: 10*3/?L. The reference range was not used to interpret this result as normal/abnormal. GRAN MAT (NEUT) % (test code = 770-8) 65.2 % IMM GRAN % (test code = 5220274403) 0.30 % LYMPH % (test code = 736-9) 26.3 % MONO % (test code = 5905-5) 5.9 % EOS % (test code = 713-8) 1.8 % BASO % (test code = 706-2) 0.5 % GRAN MAT x10^3(ANC) (test code = 1520552408) 5.02 10*3/uL 1.88-7.09 IMM GRAN x10^3 (test code = 9762149706) 0.00-0.06 LYMPH x10^3 (test code = 731-0) 2.02 10*3/uL 1.32-3.29 MONO x10^3 (test code = 742-7) 0.45 10*3/uL 0.33-0.92 EOS x10^3 (test code = 711-2) 0.14 10*3/uL 0.03-0.39 BASO x10^3 (test code = 704-7) 0.04 10*3/uL 0.01-0.07 Lab Interpretation (test code = 20522-8) Abnormal [facility] AustinPRENATAL WORKUP, BLOOD [id number] 04:24:00 * Test Item Value Reference Range Interpretation Comme nts ABO & RH (test code = 20) A POSITIVE IAT (test code = 1185) Negative [facility] [id number] 14:49:00* Test Item Value Reference Range Interpretation Comme nts POCT PREG (test code = 1605) Positive On board controls acceptable with C Line (test code = 3574) Yes POCT PREG LOT # (test code = 3575) POCT PREG TEST DATE ( test code = 3576) [facility] URINALYSIS W/O SPECIFIC [id number] 14:49:00* Test Item Value Reference Range Interpretation Comme nts POCT PH U (test code = 3254) 5 mg/dl 5-8 POCT U LEUK EST (test code = 3263) 2+ Negative - Negative POCT U NIT (test code = 3262) Neg Negative - Negati ve POCT U PROT (test code = 3259) 1+ Negative - Negat eboni POCT U GLU (test code = 3256) Neg Negative - Negati ve POCT U KETONE (test code = 3258) None Negative - Neg ative POCT U BLD (test code = 3257) Trace Negative - Negati ve [facility] AustinRHO (D) IMMUNE [id number] 12:32:07* Test Item Value Reference Range Interpretation Comme nts RHIG CANDIDATE? (test code = 5055) No- see comment Patient is not a candidate for RhIg- Patient is Rh Positive.Performed at [facility] Laboratory Services - [facility] Blood [address] [address]Fhyr Free: [phone] No. [id number] [facility] AustinVENOUS CORD [id number] 06:50:21* Test Item Value Reference Range Interpretation Comme nts VENOUS BASE EXCESS, CORD (test code = 4452103437) mEq/L VENOUS PH, CORD (test code = 9776706812) 7.25-7.45 VENOUS PC02, CORD (test code = 3975246675) See_Comment [Automated messa ge] The system which generated this result transmitted reference range: 27 - 49 mmHg. The reference range was not used to interpret this result as normal/abnormal. VENOUS PO2, CORD (test code = 1705126719) See_Comment [Automated me ssage] The system which generated this result transmitted reference range: 17 - 41 mmHg. The reference range was not used to interpret this result as normal/abnormal. VENOUS BICARBONATE, CORD (test code = 2558178765) See_Comment [Automated messa ge] The system which generated this result transmitted reference range: 12 - 29 mEq/L. The reference range was not used to interpret this result as normal/abnormal. [facility] AustinARTERIAL CORD [id number] 06:49:56* Test Item Value Reference Range Interpretation Comme nts BASE EXCESS, CORD (test code = 1109378823) mEq/L AC PH, CORD (BEAKER) (test code = 6745230920) 7.18-7.38 PC02, CORD (test code = 3133609496) See_Comment [Automated messa ge] The system which generated this result transmitted reference range: 32 - 66 mmHg. The reference range was not used to interpret this result as normal/abnormal. PO2, CORD (test code = 3283692303) See_Comment [Automated messa ge] The system which generated this result transmitted reference range: 10 - 30 mmHg. The reference range was not used to interpret this result as normal/abnormal. BICARBONATE, CORD (test code = 2729632512) See_Comment [Automated messa ge] The system which generated this result transmitted reference range: 17 - 27 mEq/L. The reference range was not used to interpret this result as normal/abnormal. [facility] AustinGALV ONLY - SYPHILIS [id number] 15:39:10* Test Item Value Reference Range Interpretation Comme nts Syphilis IgG/IgM (test code = 26250-9) Non-reactive Non-reactive MELODIE (test code = MELODIE) Non-reactive - No serologic evidence of T. pallidum infection. Cannot exclude incubating or early syphilis. Submit a second specimen in 2-4 weeks if syphilis is clinically suspected. Equivocal - Further testing to follow. Reactive - Further testing to follow. Lab Interpretation (test code = 11747-8) Normal [facility] AustinHIV 1/2 AG-AB WITH [id number] 08:20:57* Test Item Value Reference Range Interpretation Comme nts HIV Semi-quantitative (test code = 26358-9) Negative Negative MELODIE (test code = MELODIE) Non-reactive for HIV-1 antigen and HIV-1/HIV-2 antibodies. ?No laboratory evidence of HIV infection. ?Repeat in 2-4 weeks if acute HIV infection is suspected. [facility] AustinHEPATITIS B SURFACE [id number] 06:49:26 * Test Item Value Reference Range Interpretation Comme nts HBsAg Semi-Quantitative (wily t code = 5195-3) Negative Negative [facility] AustinType and Screen - ONCE [id number] 05:58:57* Test Item Value Reference Range Interpretation Comme nts ABO & RH (test code = 20) A POSITIVE Performed at [facility] Laboratory Services - [facility] Blood [address] Free: [phone] No. [id number] IAT (test code = 1185) Negative Performed at [facility] Laboratory Services - [facility] Blood [address] Free: [phone] No. [id number] [facility] AustinCBC WITH [id number] 05:32:36* Test Item Value Reference Range Interpretation Comme nts WBC (test code = 6690-2) See_Comment [Automated MusicAlla ge] The system which generated this result transmitted reference range: 4.30 - 11.10 10*3/?L. The reference range was not used to interpret this result as normal/abnormal. RBC (test code = 789-8) See_Comment [Automated messa ge] The system which generated this result transmitted reference range: 3.93 - 5.25 10*6/?L. The reference range was not used to interpret this result as normal/abnormal. HGB (test code = 718-7) 11.3 g/dL 11.6-15.0 L HCT (test code = 4544-3) 36.3 % 35.7-45.2 MCV (test code = 787-2) 80.8 fL 80.6-95.5 MCH (test code = 785-6) 25.2 pg 25.9-32.8 L MCHC (test code = 786-4) 31.1 g/dL 31.6-35.1 L RDW-SD (test code = 15304-7) 47.5 fL 39.0-49.9 RDW-CV (test code = 788-0) 16.1 % 12.0-15.5 H PLT (test code = 777-3) See_Comment H [Automated messa ge] The system which generated this result transmitted reference range: 166 - 358 10*3/?L. The reference range was not used to interpret this result as normal/abnormal. MPV (test code = 51083-4) 10.2 fL 9.5-12.9 NRBC/100 WBC (test code = 9529022229) See_Comment [Automated Lat49 ssage] The system which generated this result transmitted reference range: 0.0 - 10.0 /100 WBCs. The reference range was not used to interpret this result as normal/abnormal. NRBC x10^3 (test code = 7643755155) <0.01 See_Comment [Automated messa ge] The system which generated this result transmitted reference range: 10*3/?L. The reference range was not used to interpret this result as normal/abnormal. GRAN MAT (NEUT) % (test code = 770-8) 72.0 % IMM GRAN % (test code = 5564335419) 0.90 % LYMPH % (test code = 736-9) 19.5 % MONO % (test code = 5905-5) 5.5 % EOS % (test code = 713-8) 1.6 % BASO % (test code = 706-2) 0.5 % GRAN MAT x10^3(ANC) (test code = 4252022309) 8.00 10*3/uL 1.88-7.09 H IMM GRAN x10^3 (test code = 5486664512) 0.10 10*3/uL 0.00-0.06 H LYMPH x10^3 (test code = 731-0) 2.16 10*3/uL 1.32-3.29 MONO x10^3 (test code = 742-7) 0.61 10*3/uL 0.33-0.92 EOS x10^3 (test code = 711-2) 0.18 10*3/uL 0.03-0.39 BASO x10^3 (test code = 704-7) 0.05 10*3/uL 0.01-0.07 Lab Interpretation (test code = 44961-3) [facility] Notes Date/Time Note Provider Source 2024-10-17 13:58:09 Patient diagnosed with anemia in by provider. Advised patient iron/vitamin C supplement has been called into her pharmacy. Educated patient on iron rich foods such as dark Green leafy vegetables, red meat, beans, peas, and iron rich cereals. Educated patient on foods high in vitamin C to assist in iron absorption such as orange juice, citrus fruits, strawberries, tomatoes, and pfeiffer peppers. Educated patient on side effects of Iron supplement such as constipation and advised to supplement with colace as needed. Patient verbalized understanding. Jessica Hines RN 10/17/24 1:58 PM F OF PLANNING Jessica Hines RN [facility] 2024-10-17 13:35:35 Amaya Pederson is a 24 year old female is returning call for the nurse. Thank you. ANIA Cohen [facility] 2024-10-17 13:25:27 2nd attempt, no answer. Line cut off. Jessica Hines RN 10/17/24 1:25 PM [facility] 2024-10-17 13:13:32 Amaya Pederson is a 24 year old female Pt returning call. Please call pt at [phone] (home) ANIA Steele [facility] 2024-10-17 08:52:10 Attempted to call patient, no answer, left vm. ANIA Moreno BACK SHOE OPERATOR [facility] 2024-10-17 06:40:32 Please call patient and let he know her is very low. I erx iron supplement to pharmacy and she needs to increase iron rich foods. If it drops any further she may need iron infusion in [place]. [facility] 2024-09-17 15:34:21 Called patient, notified patient positive for UTI. Educated patient on antibiotics, good perineal hygiene, and increasing fluids. Pt verbalized understanding. Lou Hernandez LVN 09/17/2024 3:34 PM F OF PLANNING Lou Hernandez BACK SHOE OPERATOR [facility] 2024-09-17 15:22:58 Please notify the patient of UTI, meds have been sent to the pharmacy. Please advise the patient on good perineal hygiene, drinking plenty of water, and completing the entire course of treatment. Her second +uti, strongly advised to take meds as prescribed GINGER Silva 09/17/2024 3:24 PM [facility] 2024-08-22 08:31:42 Called pt on 08/21/2024, advised to continue Macrobid prescribed on 08/19/2024. Pt aware to complete medications. Jessica Hines RN 08/22/24 8:32 AM F OF PLANNING Jessica Hines RN [facility] 2024-08-22 08:26:47 Please notify the patient of UTI, meds have been sent to the pharmacy. Please advise the patient on good perineal hygiene, drinking plenty of water, and completing the entire course of treatment. GINGER Silva 08/22/2024 8:26 AM [facility] 2024-08-21 12:34:47 Called patient, notified positive for BV. Educated patient on antibiotics, daily probiotics, and BV prevention measures. Pt verbalized understanding. Notified patient positive for yeast. Educated patient on medication, good perineal hygiene, and prevention measures. Pt verbalized understanding. JESSICA Hines RN 08/21/2024 12:34 PM [employer]ING Jessica Hines RN [facility] 2024-08-21 12:33:03 Patient returned missed call from nurse ANIA Caldwell [facility] 2024-08-21 07:51:14 Called pt, no answer. Left vm. Jessica Hines RN 08/21/24 7:51 AM [facility] 2024-08-21 07:43:36 Please notify the patient that yeast was identified on her pap. Meds have been sent to her pharmacy on file, please advise the patient to complete the meds as prescribed, and practice good perineal hygiene. Please notify the patient her labs are indicative of BV, meds have been sent to her pharmacy on file. Please have her complete the entire course as prescribed. Please advise her to complete the diflucan after completion of the flagyl GINGER Silva 08/21/2024 7:43 AM [facility] 2024-06-27 13:23:33 Patient informed of results and new orders, verbalized understanding. [facility] Lisa Moreno [facility] 2024-06-27 08:14:44 1st attempt to call pt, no answer. Left VM. Lou Hernandez LVN 06/27/2024 8:15 AM [facility] Lou Hernandez [facility] 2024-06-26 16:54:36 Please notify the patient her labs are indicative of BV, meds have been sent to her pharmacy on file. Please have her complete the entire course as prescribed. .Please notify the patient that yeast was identified on her pap. Meds have been sent to her pharmacy on file, please advise the patient to complete the meds as prescribed, and practice good perineal hygiene. [facility] 2024-06-05 08:45:29 3rd attempt to call patient, no answer, left vm, will await patient call. Lisa Moreno BACK SHOE OPERATOR [facility] 2024-06-04 13:41:14 2nd attempt to call patient, message states not accepting calls at this time, will try again at a later time. [facility] 2024-06-04 11:04:16 1st attempt to call pt, no answer. Left VM. Lou Hernandez LVN Lou Hernandez [facility] 2024-06-04 10:10:52 Please provide pt with usg dept num, orders have been placed GINGER Silva 06/04/2024 10:11 AM [facility] 2024-06-03 16:50:30 Amaya Pederson is a 24 year old female calling requesting referral for US. Please contact patient at [phone] (home) or [phone] Michelle Barnard [facility]
--- NOTE | 2024-11-05 17:46 | EDPHYS ---
Physician Documentation [facility] Name: Milton Martinez Age: 24 yrs Sex: Female : 2000 Arrival Date: 11/05/2024 Time: 17:32 Bed 1 Private MD: ED Physician Julian Truong HPI: 11/05 17:47 This 24 yrs old Female presents to ER via Wheelchair with complaints of 36 ec2 weeks , contractions, Vaginal Bleeding. 17:47 Patient arrives today d/t concern for increasing contractions and concern for bloody ec2 show as well as loss of large fluid volume. This occurred at approximately 1700. Reports increased abdominal discomfort. Patient is a G3, P2. 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 - Infectious Disease History:: Denies. - Social history:: Smoking status: unknown. ROS: 17:53 Constitutional: as per hpi ec2 Exam: 17:53 Constitutional: GEN: NAD Head: atraumatic Eyes: EOMI Ears: External ears are ec2 normal. CV: regular rate LUNGS: no respiratory distress ABD: non-distended, soft, gravid uterus. : Performed under supervision, collected, RN, posterior cervix, difficult to appreciate dilation, significant fluid within the vaginal canal with pooling SKIN: no evidence of rashes MSK: no evidence of trauma Vital Signs: 17:44 BP 133 / 70; Pulse 113; Resp 18; Pulse Ox 100% on R/A; Weight 79.38 kg; Height 5 ft. 3 cm10 in. ; Pain 8/10; 18:27 BP 127 / 69; Pulse 115; Resp 18; Pulse Ox 100% ; cm10 17:44 Body Mass Index 31.00 (79.38 kg, 160.02 cm) cm10 17:44 Pain Scale: Adult cm10 MDM: 17:44 Medical Screening Exam initiated ec2 17:54 Data reviewed:. Data reviewed: vital signs, nurses notes. ED course: Patient arrives ec2 today due to concern for labor. Examination yields abdominal and findings above. Will transfer patient to OB capable facility patient sees obstetrics over at [facility] and was told that she is going to deliver at [facility]. 17:57 ED course: I discussed case with Dr. Garza, OB at [facility] who agrees accept ec2 patient for transfer. Patient updated regarding plan of care and agreeable. EMS called.. Administered Medications: No medications were administered Disposition Summary: 11/05/24 17:45 Transfer Ordered Notes: Transfer Location: [facility]-System ec2 Reason: Higher level of care ec2 Condition: Stable ec2 Problem: new ec2 Symptoms: are unchanged ec2 Accepting Physician: transferring doc(11/05/24 19:04) cm10 Diagnosis - Early Labor ec2 Forms: - Medication Reconciliation Form ec2 - SBAR form ec2 Signatures: Jes Berrios RN RN cm10 Julian Truong MD MD ec2 Corrections: (The following items were deleted from the chart) 17:53 17:47 Patient arrives today d/t concern for increasing contractions and concern for ec2 bloody show. ec2 19:04 17:45 transferring doc ec2 cm10
--- NOTE | 2024-11-05 17:46 | ER ---
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 . Coronavirus screen: Client denies travel out of the [place] in the last 14 days. Ebola Screen: Patient denies travel to an Ebola-affected area in the 21 days before illness onset. Initial Sepsis Screen: Does the patient meet any 2 criteria? HR > 90 bpm. Does the patient have a suspected source of infection? No. Patient's initial sepsis screen is negative. Risk Assessment: Do you want to hurt yourself or someone else? Patient reports no desire to harm self or others. Onset of symptoms was November 05, 2024. 17:44 Method Of Arrival: Wheelchair cm10 17:44 Acuity: KENNY 2 cm10 Triage Assessment: 17:44 General: Appears in no apparent distress. uncomfortable, Behavior is calm, cooperative. cm10 Pain: Complains of pain in abdomen Pain currently is 8 out of 10 on a pain scale. Neuro: No deficits noted. Level of Consciousness is awake, alert, obeys commands, Oriented to person, place, time, situation, Appropriate for age. Respiratory: No deficits noted. Airway is patent Respiratory effort is even, unlabored, Respiratory pattern is regular, symmetrical. : Reports vaginal bleeding that is. 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 - Infectious Disease History:: Denies. - Social history:: Smoking status: unknown. Screenin:24 [facility] ED Fall Risk Assessment (Adult) History of falling in the last 3 months, cm10 including since admission No falls in past 3 months (0 pts) Confusion or Disorientation No (0 pts) Intoxicated or Sedated No (0 pts) Impaired Gait No (0 pts) Mobility Assist Device Used No (0 pt) Altered Elimination Yes (1 pt) Score/Fall Risk Level 0 - 2 = Low Risk Oriented to surroundings, Maintained a safe environment, Hourly rounding (assess needs \T\ fall precautionary measures) done. Abuse screen: Denies threats or abuse. Denies injuries from another. Nutritional screening: No deficits noted. Tuberculosis screening: No symptoms or risk factors identified. Assessment: 18:30 Reassessment: Patient appears in no apparent distress at this time. Patient and/or cm10 family updated on plan of care and expected duration. Pain level reassessed. Patient is alert, oriented x 3, equal unlabored respirations, skin warm/dry/pink. Vital Signs: 17:44 BP 133 / 70; Pulse 113; Resp 18; Pulse Ox 100% on R/A; Weight 79.38 kg; Height 5 ft. 3 cm10 in. ; Pain 8/10; 18:27 BP 127 / 69; Pulse 115; Resp 18; Pulse Ox 100% ; cm10 17:44 Body Mass Index 31.00 (79.38 kg, 160.02 cm) cm10 17:44 Pain Scale: Adult cm10 Vitals: 17:44 Heart Tones 140BPM. cm10 ED Course: 17:33 Patient arrived in ED. im 17:44 Jes Berrios, AGNIESZKA is Primary Nurse. cm10 17:44 Julian Truong MD is Attending Physician. ec2 17:45 Triage completed. cm10 17:45 Arm band placed on right wrist. Patient placed in an exam room, on a stretcher. cm10 17:45 Assist provider with pelvic exam: Performed by Julian Truong MD Patient tolerated well. cm10 Initial lab(s) drawn, by or, held in ED. Inserted saline lock: 20 gauge in left hand, using aseptic technique. Blood collected. Flushed with 10 mL NS. 18:24 Patient has correct armband on for positive identification. Placed in gown. Bed in low cm10 position. Call light in reach. Side rails up X2. Provided Education on: ER process and procedures. 18:25 Report given to AGNIESZKA Palomino at [facility] L\T\D. cm10 18:41 Patient transferred, IV remains in place. cm10 Administered Medications: No medications were administered Medication: 18:24 VIS not applicable for this client. cm10 Outcome: 17:45 ER care complete, transfer ordered by . ec2 19:03 Transferred by ground EMS [place]. to [facility], Transfer cm10 form completed. 19:03 Condition: stable 19:03 Instructed on the need for transfer, 19:04 Patient left the ED. cm10 Signatures: Lucy Ware Clarissa, RN RN cm10 Julian Truong MD MD ec2
[2024-11-05 19:22] VITALS: O2SAT 100
[2024-11-05 19:23] VITALS: BP 127/69
== END 2024-11-05 19:04 | disposition short-term general hospital (02) ==
LOC: ER 17:32
DX: O60.03 Preterm labor without delivery, third trimester (principal); Z3A.36 36 weeks gestation of pregnancy

== ENCOUNTER 2025-05-12 06:05 | Emergency (ER) | payer OTHER ==
[2025-05-12] MEDS ORDERED: NA CHLORIDE 0.9% 2,000 ML ONE (06:13)
[2025-05-12 06:23] LABS: Absolute Lymphocytes (CBC) 3.4 K/uL (0.7-4.9); Hematocrit 40.1 % (36.0-45.0); Hemoglobin 13.0 g/dL (12.0-15.0); MCH 27.3 pg (27.0-35.0); MCHC 32.6 g/dL (32.0-36.0); MCV 83.9 fL (80-100); MPV 8.1 fL (7.6-11.3); Nucleated RBC Absolute Count 0.0 (0-0); Nucleated Red Blood Cells % 0.0 % (0-0); RBC Red Blood Cell Count 4.78 M/uL (3.86-4.86); White Blood Count 7.20 thou/uL (4.3-10.9)
[2025-05-12] MEDS ORDERED: NALOXONE HCL 2 MG/2 ML VIAL ONE (06:23)
[2025-05-12] MEDS ORDERED: ACETAMINOPHEN 500 MG TAB ONE (06:26)
[2025-05-12 06:32] LABS: PT Prothrombin Time 13.5 SECONDS (10-13.0); PTT, Activated Partial Thromb 31.0 SECONDS (27.2-37.4); Protime INR 1.2
[2025-05-12] MEDS ORDERED: METOCLOPRAMIDE 10 MG/2mL INJ ONE (06:37)
[2025-05-12] MEDS ORDERED: KETOROLAC 30 MG/ML INJ ONE (06:38)
[2025-05-12] MEDS ORDERED: DIPHENHYDRAMINE 50 MG/ML VIAL ONE (06:38)
[2025-05-12 06:45] LABS: ALT/SGPT 52 U/L (13-56); Albumin 3.9 g/dL (3.4-5.0); Albumin/Globulin Ratio 0.9 (1.1-1.8); Alkaline Phosphatase 69 U/L (45-117); Anion Gap 12.1 mEq/L (5.0-15.0); BUN Blood Urea Nitrogen 8 mg/dL (7-18); Globulin 4.3 g/dL (2.3-3.5); Glucose Level 118 mg/dL (74-106)
[2025-05-12 06:46] LABS: AST/SGOT 43 U/L (15-37); Bilirubin Indirect, Calculated 0.1 mg/dL (0.2-0.8); Potassium 3.1 mEq/L (3.5-5.1)
--- NOTE | 2025-05-12 09:19 | ER ---
Nurse's Notes [facility] Name: Milton Martinez Age: 25 yrs Sex: Female : 2000 Arrival Date: 05/12/2025 Time: 06:05 Bed 3 Private MD: Diagnosis: Drug overdose, substance abuse Presentation: 05/12 06:13 Chief complaint: EMS states: patient was found unresponsive after snorting white powder cp4 possibly fentanyl. Patient was given 4 mg narcan intranasal and 4 mg zofran IV. Patient states she was not trying to hurt herself. Coronavirus screen: Client denies travel out of the [place] in the last 14 days. At this time, the client does not indicate any symptoms associated with coronavirus-19. Ebola Screen: Patient negative for fever greater than or equal to 101.5 degrees Fahrenheit, and additional compatible Ebola Virus Disease symptoms Patient denies exposure to infectious person. Patient denies travel to an Ebola-affected area in the 21 days before illness onset. No symptoms or risks identified at this time. Initial Sepsis Screen: Does the patient meet any 2 criteria? HR > 90 bpm. No. Patient's initial sepsis screen is negative. Does the patient have a suspected source of infection? No. Patient's initial sepsis screen is negative. Risk Assessment: Do you want to hurt yourself or someone else? Patient reports no desire to harm self or others. Onset of symptoms was May 12, 2025 at 05:00. 06:13 Method Of Arrival: EMS: [place] [id number] 06:13 Acuity: KENNY 2 4 06:13 Care prior to arrival: Medication(s) given: zofran 4 mg, Narcan 4 mg. cp4 Triage Assessment: 06:16 General: Appears in no apparent distress. uncomfortable, Behavior is appropriate for cp4 age, anxious, crying. Pain: Denies pain. EENT: No signs and/or symptoms were reported regarding the EENT system. Neuro: Level of Consciousness is awake, alert, obeys commands, Oriented to person, place, time, situation. Cardiovascular: Patient's skin is warm and dry. Rhythm is sinus tachycardia. Respiratory: Airway is patent Respiratory effort is even, unlabored. GI: No signs and/or symptoms were reported involving the gastrointestinal system. : No signs and/or symptoms were reported regarding the genitourinary system. Derm: No signs and/or symptoms reported regarding the dermatologic system. Musculoskeletal: No signs and/or symptoms reported regarding the musculoskeletal system. 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 - Infectious Disease History:: Denies. - Social history:: Smoking status: Patient denies any tobacco usage or history of. - Family history:: not pertinent. Screenin:18 [facility] ED Fall Risk Assessment (Adult) History of falling in the last 3 months, cp4 including since admission No falls in past 3 months (0 pts) Confusion or Disorientation No (0 pts) Intoxicated or Sedated No (0 pts) Impaired Gait No (0 pts) Mobility Assist Device Used No (0 pt) Altered Elimination No (0 pt) Score/Fall Risk Level 0 - 2 = Low Risk Oriented to surroundings, Maintained a safe environment, Assessed \\T\\ reinforced patient's understanding of fall precautions, Hourly rounding (assess needs \\T\\ fall precautionary measures) done. 06:19 Abuse screen: Denies threats or abuse. Denies injuries from another. Nutritional cp4 screening: No deficits noted. Tuberculosis screening: No symptoms or risk factors identified. Never had TB. Assessment: 06:18 Reassessment: No changes from previously documented assessment. cp4 06:49 General: Appears uncomfortable, Behavior is cooperative, crying. Neuro: Level of kd3 Consciousness is awake, alert, obeys commands, Oriented to person, place, time, situation. Cardiovascular: Capillary refill < 3 seconds Patient's skin is warm and dry. Respiratory: Airway is patent Trachea midline Respiratory effort is even, unlabored, Respiratory pattern is regular, symmetrical. GI: Pt is actively vomiting undigested food. 07:20 General: Appears in no apparent distress. uncomfortable, Behavior is calm, cooperative, jl7 flat. Pain: Complains of pain in headache Pain currently is 10 out of 10 on a pain scale. Neuro: Dodge Agitation-Sedation Scale (RASS): 0 - Alert and Calm Level of Consciousness is awake, alert, obeys commands, Oriented to person, place, time, situation. Cardiovascular: Patient's skin is warm and dry. Respiratory: Airway is patent Respiratory effort is even, unlabored, Respiratory pattern is regular, symmetrical. Derm: Skin is pink, warm \\T\\ dry. 08:30 Reassessment: Patient appears in no apparent distress at this time. Patient and/or jl7 family updated on plan of care and expected duration. Pain level reassessed. Patient is alert, oriented x 3, equal unlabored respirations, skin warm/dry/pink. Patient states feeling better. Overdose: 06:22 Jelm Suicide Severity Screening: "In the past month, have you wished you were cp4 or wished you could go to sleep and not wake up?" Patient responds "no." "In the past month, have you actually had any thoughts of killing yourself?" Patient responds "no." "In your lifetime, have you ever done anything, started to do anything, or prepared to do anything to end your life?" Patient responds "no.". Overdose occurred 1-2 hours ago. 09:33 Jelm Suicide Severity Screening: "In the past month, have you wished you were jl7 or wished you could go to sleep and not wake up?" Patient responds "no." "In the past month, have you actually had any thoughts of killing yourself?" Patient responds "no.". Vital Signs: 06:13 BP 123 / 67; Pulse 102; Resp 18; Temp 98.9; Pulse Ox 99% ; Weight 64.86 kg; Height 5 cp4 ft. 2 in. ; Pain 0/10; 06:51 BP 123 / 67; Pulse 129; Resp 20; Pulse Ox 99% on R/A; kd3 07:20 BP 129 / 86; Pulse 80; Resp 14; Pulse Ox 100% ; Pain 10/10; jl7 07:55 BP 129 / 86; Pulse 85; Resp 15; Pulse Ox 100% ; jl7 08:00 Pain 0/10; jl7 08:00 Pain 0/10; jl7 09:30 BP 117 / 82; Pulse 80; Resp 15; Temp 97; Pulse Ox 100% ; jl7 06:13 Body Mass Index 26.15 (64.86 kg, 157.48 cm) cp4 06:13 Pain Scale: Adult cp4 07:20 Pain Scale: Adult jl7 08:00 Pain Scale: Adult jl7 08:00 Pain Scale: Adult jl7 Vanessa Coma Score: 06:21 Eye Response: spontaneous(4). Motor Response: obeys commands(6). Verbal Response: sp4 oriented(5). Total: 15. ED Course: 06:05 Patient arrived in ED. rv1 06:10 Enrique Strong MD is Attending Physician. sp4 06:16 Triage completed. cp4 06:16 Arm band placed on right wrist. Patient placed in an exam room, on a stretcher. cp4 06:19 Placed in gown. Bed in low position. Call light in reach. Side rails up X2. cp4 06:19 No provider procedures requiring assistance completed. cp4 06:20 Maintain EMS IV. Dressing intact. Good blood return noted. Site clean \\T\\ dry. Gauge \\T\\ cp 4 site: 20 G LAC. 06:28 Berta Castaneda, RN is Primary Nurse. kd3 07:12 Attending Physician role handed off by Enrique Strong MD sp3 07:12 Russel Quintana MD is Attending Physician. sp3 09:30 Provided Education on: discharge. jl7 09:30 IV discontinued, intact, bleeding controlled, No redness/swelling at site. Pressure jl7 dressing applied. Administered Medications: 06:20 Drug: NS 0.9% IV 1000 ml IV at 1 bolus Per protocol; to be given as a bolus over 60 cp4 minutes Route: IV; Rate: 1 bolus; Site: left antecubital; 08:00 Follow up: IV Status: Completed infusion jl7 06:20 Drug: NS 0.9% IV 1000 ml IV at 1000 ml once; to be given as a bolus over 60 minutes cp4 Route: IV; Rate: 1000 ml; Site: left antecubital; 08:00 Follow up: IV Status: Completed infusion jl7 06:28 Drug: Naloxone IVP 2 mg IVP once Route: IVP; Site: right antecubital; kd3 09:30 Follow up: Response: No adverse reaction jl7 06:28 Drug: Acetaminophen PO 1000 mg PO once Route: PO; kd3 08:00 Follow up: Pain 0/10 Adult; Response: No adverse reaction; Pain is decreased; RASS: jl7 Drowsy (-1) 06:44 Drug: Ketorolac IVP 30 mg IVP once Route: IVP; Site: left antecubital; kd3 08:00 Follow up: Pain 0/10 Adult; Response: No adverse reaction; Pain is decreased jl7 06:44 Drug: metoCLOPramide IVP 10 mg IVP once; over 1 to 2 minutes Route: IVP; Site: left kd3 antecubital; 09:32 Follow up: Response: No adverse reaction jl7 06:44 Drug: diphenhydrAMINE IVP 25 mg IVP once Route: IVP; Site: left antecubital; kd3 09:32 Follow up: Response: No adverse reaction jl7 Medication: 06:18 VIS not applicable for this client. cp4 Outcome: 09:18 Discharge ordered by . jose [email or web address] 09:30 Discharged to home ambulatory, with family, jl7 09:30 Condition: stable 09:30 Discharge instructions given to patient, family, Instructed on discharge instructions, follow up and referral plans. Demonstrated understanding of instructions, follow-up care, 09:34 Patient left the ED. jl7 Signatures: Lidia Tejada RN RN jl7 Russel Quintana MD MD sp3 Berta Castaneda RN RN kd3 Meg Haq Sergey, MD MD sp4 Anais Swartz cp4 Corrections: (The following items were deleted from the chart) 06:21 06:19 Maintain EMS IV. Dressing intact. Good blood return noted. Site clean \\T\\ dry. cp4 Gauge \\T\\ site: 20 g RAC. cp4 07:14 07:14 PSHx: None; jl7 jl7
--- NOTE | 2025-05-12 09:19 | EDPHYS ---
Physician Documentation [facility] Name: Milton Martinez Age: 25 yrs Sex: Female : 2000 Arrival Date: 05/12/2025 Time: 06:05 Bed 3 Private MD: ED Physician Russel Quintana HPI: 05/12 06:14 This 25 yrs old Female presents to ER via Unassigned with complaints of sp4 Accidental Overdose. 06:14 25-year-old female presents with presumed fentanyl overdose after she inhaled white sp4 powder at her apartment and was found passed out in the shower and unresponsive. The PD has administered 4 mg intranasal Narcan which woke patient up. Patient presents in acute emotional upset tearful and tachycardic. Stable blood pressure. 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 - Infectious Disease History:: Denies. - Social history:: Smoking status: Patient denies any tobacco usage or history of. - Family history:: not pertinent. ROS: 06:21 Constitutional: Negative for fever, chills, and weight loss, positive for acute sp4 overdose and unresponsiveness 06:21 All other systems are negative, Exam: 06:21 Constitutional: This is a well developed, well nourished patient who is awake, aler , sp4 acute emotional distress tearful and tremulous tachycardic on arrival Head/Face: Normocephalic, atraumatic. Eyes: Pupils equal round and reactive to light, extra-ocular motions intact. Lids and lashes normal. Conjunctiva and sclera are not injected. Cornea within normal limits. Periorbital areas with no swelling, redness, or edema. ENT: Nares patent. No nasal discharge, no septal abnormalities noted. Tympanic membranes are normal and external auditory canals are clear. Oropharynx with no redness, swelling, or masses, exudates, or evidence of obstruction, uvula midline. Mucous membranes moist. Neck: Trachea midline, no thyromegaly or masses palpated, and no cervical lymphadenopathy. Supple, full range of motion without nuchal rigidity, or vertebral point tenderness. Chest/axilla: Normal chest wall appearance and motion. Nontender with no deformity. No lesions are appreciated. Cardiovascular: Regular rate and rhythm with a normal S1 and S2. No gallops, murmurs, or rubs. No pulse deficits. Respiratory: Lungs have equal breath sounds bilaterally, clear to auscultation and percussion. No rales, rhonchi or wheezes noted. No increased work of breathing, no retractions or nasal flaring. Abdomen/GI: Soft, with normal bowel sounds. No distension or tympany. No guarding or rebound. No evidence of tenderness throughout. Back: No spinal tenderness. No costovertebral tenderness. Skin: Warm, dry with normal turgor. Normal color with no rashes, no lesions, and no evidence of cellulitis. MS/ Extremity: Pulses equal, no cyanosis. Neurovascular intact. Full, normal range of motion. Neuro: Awake and alert, GCS 15, oriented to person, place, time, and situation. Cranial nerves II-XII grossly intact. Motor strength 5/5 in all extremities. Sensory grossly intact. Psych: Awake, alert, with orientation to person, place and time. Acute distress tearfulness and anxiety, acute emotional upset 06:21 ECG was reviewed by the Attending Physician. EKG at 0610 sinus tachycardia otherwise normal EKG rate 103. Vital Signs: 06:13 BP 123 / 67; Pulse 102; Resp 18; Temp 98.9; Pulse Ox 99% ; Weight 64.86 kg; Height 5 cp4 ft. 2 in. ; Pain 0/10; 06:51 BP 123 / 67; Pulse 129; Resp 20; Pulse Ox 99% on R/A; kd3 07:20 BP 129 / 86; Pulse 80; Resp 14; Pulse Ox 100% ; Pain 10/10; jl7 07:55 BP 129 / 86; Pulse 85; Resp 15; Pulse Ox 100% ; jl7 08:00 Pain 0/10; jl7 08:00 Pain 0/10; jl7 09:30 BP 117 / 82; Pulse 80; Resp 15; Temp 97; Pulse Ox 100% ; jl7 06:13 Body Mass Index 26.15 (64.86 kg, 157.48 cm) cp4 06:13 Pain Scale: Adult cp4 07:20 Pain Scale: Adult jl7 08:00 Pain Scale: Adult jl7 08:00 Pain Scale: Adult jl7 Vanessa Coma Score: 06:21 Eye Response: spontaneous(4). Motor Response: obeys commands(6). Verbal Response: sp4 oriented(5). Total: 15. MDM: 06:23 Differential diagnosis: Ingestion/exposure to Fentanyl, opiates polypharmacy, over sp4 medication, hypoglycemia. Data reviewed: vital signs, nurses notes, EMS record, old medical records, lab test result(s), EKG. Consideration of Admission/Observation Escalation of care including admission/observation considered. 06:38 Medical Screening Exam initiated sp4 07:04 ED course: Who will proceed with monitoring for the next 3 hours. Patient may be able sp4 to go home at about 9 AM. 07:05 Transition of care: After a detail discussion of the patient's case, care is sp4 transferred to Russel Quintana MD. 07:18 ED course: Patient signed out to me by nighttime physician for final disposition and sp3 reevaluation. Patient is a 25-year-old female with fentanyl overdose who came in tachycardic and altered mental status. She is currently alert and we are keeping in observation status. I will follow-up on remainder of outstanding labs and disposition accordingly.. 09:17 ED course: Patient has been awake and oriented. Vital signs are normal. Patient's mom sp3 is here. Will be discharging patient home and mom states that she will be with her the entire time and will ensure that she is awake. Patient counseled on substance abuse.. 05/12 06:10 Order name: Acetaminophen; Complete Time: 05/12 06:10 Order name: Basic Metabolic Panel; Complete Time: 05/12 06:10 Order name: CBC with Diff; Complete Time: 05/12 06:10 Order name: ETOH Level; Complete Time: 05/12 06:10 Order name: Hepatic Function; Complete Time: 05/12 06:10 Order name: PT-INR; Complete Time: 05/12 06:10 Order name: Ptt, Activated; Complete Time: 05/12 06:10 Order name: Salicylate; Complete Time: 05/12 06:11 Order name: Test, Serum; Complete Time: 06:58 sp4 05/12 06:10 Order name: EKG - Nurse/Tech; Complete Time: 06:13 zm 05/12 06:10 Order name: IV Saline Lock; Complete Time: 06:13 zm 05/12 06:10 Order name: Labs collected and sent; Complete Time: 06:13 zm 05/12 06:10 Order name: Suicide Screening ([place]); Complete Time: 06:13 zm EC:10 Rate is 103 beats/min. Rhythm is regular, Sinus tachycardia. QRS [place] is Normal. IN sp4 interval is normal. QRS interval is normal. QT interval is normal. No Q waves. T waves are Normal. No ST changes noted. Clinical impression: No evidence of ischemia. Interpreted by me. Reviewed by me. Administered Medications: 06:20 Drug: NS 0.9% IV 1000 ml IV at 1 bolus Per protocol; to be given as a bolus over 60 cp4 minutes Route: IV; Rate: 1 bolus; Site: left antecubital; 08:00 Follow up: IV Status: Completed infusion jl7 06:20 Drug: NS 0.9% IV 1000 ml IV at 1000 ml once; to be given as a bolus over 60 minutes cp4 Route: IV; Rate: 1000 ml; Site: left antecubital; 08:00 Follow up: IV Status: Completed infusion jl7 06:28 Drug: Naloxone IVP 2 mg IVP once Route: IVP; Site: right antecubital; 3 09:30 Follow up: Response: No adverse reaction jl7 06:28 Drug: Acetaminophen PO 1000 mg PO once Route: PO; kd3 08:00 Follow up: Pain 0/10 Adult; Response: No adverse reaction; Pain is decreased; RASS: [facility] Drowsy (-1) 06:44 Drug: Ketorolac IVP 30 mg IVP once Route: IVP; Site: left antecubital; kd3 08:00 Follow up: Pain 0/10 Adult; Response: No adverse reaction; Pain is decreased jl7 06:44 Drug: metoCLOPramide IVP 10 mg IVP once; over 1 to 2 minutes Route: IVP; Site: left 3 antecubital; 09:32 Follow up: Response: No adverse reaction jl7 06:44 Drug: diphenhydrAMINE IVP 25 mg IVP once Route: IVP; Site: left antecubital; kd3 09:32 Follow up: Response: No adverse reaction jl7 Disposition Summary: 05/12/25 09:18 Discharge Ordered Notes: Location: Home sp3 Condition: Stable sp3 Diagnosis - Drug overdose, substance abuse sp3 Followup: sp3 - With: Private Physician - When: Upon discharge from the Emergency Department - Reason: Continuance of care Discharge Instructions: - Discharge Summary Sheet sp3 - Substance Use Disorder sp3 Forms: - Medication Reconciliation Form sp3 - Antibiotic Education sp3 - Prescription Opioid Use sp3 - Patient Portal Instructions sp3 - Leadership Thank You Letter sp3 Signatures: Dispatcher [employer] Lidia Amezquita RN RN jl7 Russel Quintana MD MD sp3 Berta Castaneda RN RN kd3 Parisa Orlando RN RN vc1 [place] RN RN zm Potepalov, Sergey, MD MD sp4 Anais Swartz cp4 Corrections: (The following items were deleted from the chart) 06:11 06:11 ACETAMINOPHEN+C.LAB.BRZ ordered. EDMS EDMS 06:11 06:11 BASIC METABOLIC PANEL+C.LAB.BRZ ordered. EDMS EDMS 06:11 06:11 CBC+H.LAB.BRZ ordered. EDMS EDMS 06:11 06:11 ETHANOL+C.LAB.BRZ ordered. EDMS EDMS 06:11 06:11 HEPATIC FUNCTION+C.LAB.BRZ ordered. EDMS EDMS 06:11 06:11 PROTIME (+INR)+COAG.LAB.BRZ ordered. EDMS EDMS 06:11 06:11 Test, Urine+UC.LAB.BRZ ordered. EDMS EDMS 06:11 06:11 PTT, ACTIVATED+COAG.LAB.BRZ ordered. EDMS EDMS 06:11 06:11 SALICYLATE+C.LAB.BRZ ordered. EDMS EDMS 06:11 06:11 URINE DRUG SCREEN+UC.LAB.BRZ ordered. EDMS EDMS 07:14 07:14 PSHx: None; jl7 jl7
[2025-05-12 09:48] VITALS: O2SAT 100
[2025-05-12 09:51] VITALS: BP 117/82; TEMP 97
== END 2025-05-12 09:34 | disposition home or self-care (01) ==
LOC: ER 06:05
DX: T40.411A Poisoning by fentanyl or fentanyl analogs, accidental (unintentional), initial encounter (principal); F11.10 Opioid abuse, uncomplicated
CPT/HCPCS: 85025; 80048; 36415; 84703; 85610; 80076; 85730; 99291; 99292; 80143; 80179; 82077; J2310; J2765; J1200; J7030; J1885; J2312